=== PATIENT | female | born 1935 | race Caucasian/White ===

== ENCOUNTER 2017-08-06 16:17 | Emergency (ER) | payer MEDICARE, MEDICAID ==
--- NOTE | 2017-08-06 16:55 | ED Physician Chart ---
ED Chief Complaint/HPI - Patient Information Date Seen:: 08/06/17 Time Seen:: 16:40 Chief Complaint:: Syncope History of Present Illness:: onset x one day of a possible syncope episode resulting in a possible fall resulting in report of right hip pain; no report of H/As, S/T, neck pain, C/P, SOB, Abd. Pain, A/N/V/D/C, fever, chills, or urinary s/s; pt's last tetanus shot : < 5 years; UTD; no report of AMS, ALOC, or LOC Vitals:: Vital Signs - 8 hr 08/06/17 16:41 Temp 97.2 F HR 64 RR 16 BP 126/67 O2 Sat % 99 Historian:: Patient, EMS Review:: Nurse's Note Reviewed, Old Chart Reviewed, EMS run form Reviewed ED Review of Systems - Review of Systems General/Constitutional: No fever, No chills, No weight loss, No weakness, No diaphoresis, No edema, No loss of appetite Skin: No skin lesions, No rash, No bruising Head: No headache, No light-headedness Eyes: No loss of vision, No pain, No diplopia ENT: No earache, No nasal drainage, No sore throat, No tinnitus Neck: No neck pain, No swelling, No thyromegaly, No stiffness, No mass noted Cardio Vascular: No chest pain, No palpitations, No PND, No orthopnea, No edema Pulmonary: No SOB, No cough, No sputum, No wheezing GI: No nausea, No vomiting, No diarrhea, No pain, No melena, No hematochezia, No constipation, No hematemesis G/U: No dysuria, No frequency, No hematuria, No nacturia [employer]: No vaginal discharge, No abnormal vaginal bleed, No contraction Musculoskeletal: No bone or joint pain, No back pain, No muscle pain Endocrine: No polyuria, No polydipsia Psychiatric: Prior psych history, No depression, Anxiety, No suicidal ideation, No homicidal ideation, Auditory hallucination, No visual hallucination Hematopoietic: No bruising, No lymphadenopathy Allergic/Immuno: No urticaria, No angioedema Neurological: No syncope, No focal symptoms, No weakness, No paresthesia, No headache, No seizure, No dizziness, Confusion, No vertigo ED Past Medical History - Past Medical History Obtainable: Yes Past Medical History: HTN, Asthma/COPD, Dyslipidemia, PUD/GERD, Dementia Family History: HTN Social History: Non Smoker, No Alcohol, No Drug Use, Single, Care Facility Surgical History: None Psychiatricy History: Schizophrenia, Dementia Medication: Reviewed Family Medical History - Family Member Son History Unknown: Yes ED Physical Exam - Physical Examination General/Constitutional: Awake, Well-developed, well-nourished, Alert, No distress, GCS 15, Non-toxic appearing, Ambulatory Head: Atraumatic Eyes: Lids, conjuctiva normal, PERRL, EOMI Skin: Nl inspection, No rash, No skin lesions, No ecchymosis, Well hydrated, No lymphadenopathy ENMT: External ears, nose nl, TM canals nl, Nasal exam nl, Lips, teeth, gums nl , Oropharynx nl, Tonsils nl Neck: Nontender, Full ROM w/o pain, No JVD, No nuchal rigidity, No bruit, No mass, No stridor Respiratory: Nl effort/Exclusion, Clear to Auscultation, No Wheeze/Rhonchi/Rales Cardio Vascular: RRR, No murmur, gallop, rubs, NL S1 S2, Carotid/Femoral/Distal pulses equal bilaterally GI: No tenderness/rebounding/guarding, No organomegaly, No hernia, Normal BS's, Nondistended, No mass/bruits, No McBurney tenderness : No CVA tenderness Extremities: No tenderness or effusion, Full ROM, normal strength in all extremities, No edema, Normal digits & nails Other Extremities comments:: + Right Hip tenderness; good NV functions Neuro/Psych: DTR's symmetric, Normal sensory exam, Normal motor strength, Judgement/insight normal, Mood normal, Normal gait, No focal deficits Other Neuro/Psych comments:: Disoriented and Confused Misc: Normal back, No paraspinal tenderness ED Labs/Radiology/EKG Results - Lab Results Comments:: unremarkable - Radiology Results Comments:: NAD - EKG Interpretations EKG Time:: 16:59 Rate & Rhythm: 58; SB Comments:: non-specific st-t changes ED Septic Shock - . Is Septic Shock (SBP<90, OR Lactate>4 mmol\L) present?: No - <6hrs of presentation: Vital Signs: Vital Signs - 8 hr 08/06/17 16:41 Temp 97.2 F HR 64 RR 16 BP 126/67 O2 Sat % 99 ED Reassessment (Disposition) - Reassessment Reassessment Condition:: Improved - Diagnosis Diagnosis:: Syncope; ? Fall; Hip Pain; Dementia; Psychiatric Medical Clearance - Aftercare/Follow up Instructions Aftercare/Follow-Up Instructions:: Counseled pt regarding lab results/diagnosis & need follow up, Counseled pt & family regarding lab results/diagnosis & need follow up - Patient Disposition Discharge/Transfer:: Acute Care w/in this hosp Accepting Physician:: Dr. Costa Time Called:: 1829 Time Responded:: 18:30 Admitted to:: [facility] Spoke to:: Dr. Phillip Dubois Admitting Medical Physician:: Dr. Costa Admitting Psych Physician:: Dr. Latif Condition at Disposition:: Stable, Improved
[2017-08-06 17:13] LABS: % BASOPHILS 0.2 % (0.0-2.0); % EOSINOPHILS 2.9 % (0.0-5.0); % LYMPHOCYTES 27.8 % (20.0-50.0); % MONOCYTES 7.8 % (2.0-10.0); % NEUTROPHILS 61.3 % (40.0-80.0); EOSINOPHILE ABSOLUTE 0.2 Th/cmm (0.1-0.4); HEMATOCRIT 37.5 % (41.0-60); HEMOGLOBIN 12.9 gm/dL (12-16); MEAN CELL VOLUME 87.4 fl (81-100); MEAN CORPUSCULAR HGB CONC 34.3 pg (28.0-36.0); MEAN PLATELET VOLUME 7.9 fl; MONOCYTE ABSOLUTE 0.6 Th/cmm (0.3-1.0); NEUTROPHILE ABSOLUTE 4.5 Th/cmm (1.8-8.0); PLATELET COUNT 269 Th/cmm (150-400); RED BLOOD COUNT 4.29 Mil/cmm (3.80-5.20); RED CELL DISTRIBUTION WIDTH 12.7 % (11.5-20.0); WHITE BLOOD COUNT 7.3 Th/cmm (4.8-10.8)
[2017-08-06 17:29] LABS: INR 0.92 (0.5-1.4); PROTHROMBIN TIME (TEST) 9.6 SECONDS (9.5-11.5)
[2017-08-06 17:32] LABS: ALB/GLOB RATIO 1.6 (1.0-1.8); ALBUMIN 4.4 gm/dL (3.7-5.3); ALKALINE PHOSPHATASE 47 U/L (34-104); BILIRUBIN,TOTAL 0.3 mg/dL (0.3-1.0); BUN - UREA NITROGEN 22 mg/dL (7-25); CALCIUM SERUM 9.7 mg/dL (8.6-10.3); CARBON DIOXIDE 29.9 mEq/L (21.0-31.0); CHLORIDE 100 mEq/L (98-107); CHOLESTEROL 187 mg/dL (<200); CREATININE - SERUM 0.8 mg/dL (0.6-1.2); CREATININE KINASE 105 U/L (30-223); GLUCOSE 94 mg/dL (70-105); HDL -HIGH DENSITY LIPOPROTEIN 64 mg/dL (23-92); POTASSIUM SERUM 3.9 mEq/L (3.5-5.1); SGOT 21 U/L (13-39); SGPT/ALT 15 U/L (7-52); SODIUM SERUM 136 mEq/L (136-145); TOTAL PROTEIN,SERUM 7.1 gm/dL (6.0-8.3); TRIGLYCERIDES 102 mg/dL (<150)
--- NOTE | 2017-08-07 07:55 | Diagnostic Imaging Report ---
Pelvis and bilateral hips 2 views Indication: pain Comparison: none Findings: Mild degenerative changes of bilateral hip joints are noted. There appear to be external material projecting along the right proximal femur including including closing material. No evidence of an acute fracture or dislocation. Advanced degenerate changes of the lower lumbar spine are noted. Pelvic phleboliths are noted. Impression: No evidence of an acute fracture. Mild degenerative changes of bilateral hip joints. Advanced degenerative changes of the lower lumbar spine. In the setting of trauma, if clinical symptoms persist and there is continued concern for an occult fracture, follow up exams in 5-7 days is suggested.
== END 2017-08-06 20:00 ==
LOC: ER 16:17
DX: R55 Syncope and collapse (principal); F03.90 Unspecified dementia, unspecified severity, without behavioral disturbance, psychotic disturbance, mood disturbance, and anxiety; M25.551 Pain in right hip; I10 Essential (primary) hypertension; J44.9 Chronic obstructive pulmonary disease, unspecified; J45.909 Unspecified asthma, uncomplicated; E78.5 Hyperlipidemia, unspecified; K21.9 Gastro-esophageal reflux disease without esophagitis; K27.9 Peptic ulcer, site unspecified, unspecified as acute or chronic, without hemorrhage or perforation
CPT/HCPCS: 36415-UA; 73521; 80053-TC; 80061-TC; 82550-TC; 83880-TC; 84484-TC; 85025-TC; 85610-TC; 93005; 94760; J2001; Z7610

== ENCOUNTER 2017-11-01 17:29 | Inpatient (IN) | payer MEDICARE, MEDICAID ==
--- NOTE | 2017-11-01 18:21 | ED Physician Chart ---
ED Chief Complaint/HPI - Patient Information History of Present Illness:: Patient lives in retirement facility, history of psychiatric illness. Recent exacerbation of illness with verbally abusive behavior with psychotic overtones. Allergies:: Allergies Allergy/AdvReac Type Severity Reaction Status Date / Time No Known Allergies Allergy Verified 08/06/17 16:57 Historian:: EMS, Medical Records <Krishan eKvin Last Filed: 11/02/17 20:04> - Patient Information Date Seen:: 11/01/17 Time Seen:: 18:21 Chief Complaint:: Agitation and aggressiveness Allergies:: Allergies Allergy/AdvReac Type Severity Reaction Status Date / Time No Known Allergies Allergy Verified 08/06/17 16:57 Vitals:: Vital Signs - 8 hr 11/01/17 17:41 Temp 97.5 F HR 67 RR 16 BP 135/62 O2 Sat % 98 <Carole Vazquez - Last Filed: 11/02/17 21:43> ED Review of Systems - Review of Systems Skin: No skin lesions ENT: No nasal drainage Neck: No mass noted Cardio Vascular: No edema Pulmonary: No wheezing GI: No melena Psychiatric: Prior psych history (aggressive behavior) Hematopoietic: No bruising Allergic/Immuno: No urticaria Neurological: No seizure Other: Difficult to obtain full ROS as patient is unreliable historian. Obtained from medical records and EMS. <Krishan Kevin Filed: 11/02/17 20:04> ED Past Medical History - Past Medical History Obtainable: Yes (Difficult to obtain full PMH as patient is unreliable) Past Medical History: Other (chronic psychiatric illness) Social History: Care Facility Psychiatricy History: Depression (aggressive behavior) <Krishan Kevin Last Filed: 11/02/17 20:04> Family Medical History - Family Member Son History Unknown: Yes <Krishan Kevin Last Filed: 11/02/17 20:04> - Family Member Son History Unknown: Yes <Carole Vazquez - Last Filed: 11/02/17 21:43> ED Physical Exam - Physical Examination General/Constitutional: Awake Head: Atraumatic Eyes: Lids, conjuctiva normal Skin: Nl inspection ENMT: External ears, nose nl Neck: Nontender Respiratory: Nl effort/Exclusion, No Wheeze/Rhonchi/Rales Cardio Vascular: RRR GI: No tenderness/rebounding/guarding Extremities: No tenderness or effusion Misc: Normal back <KevinKrishan - Last Filed: 11/02/17 20:04> ED Labs/Radiology/EKG Results - Lab Results Results: Laboratory Tests 11/01/17 11/01/17 11/01/17 18:00 18:37 18:37 WBC 6.5 RBC 4.24 Hgb 12.7 Hct 36.4 L MCV 85.8 MCH 29.9 MCHC Differential 34.8 RDW 12.6 Plt Count 292 MPV 7.6 Neutrophils % 58.5 Lymphocytes % 26.3 Monocytes % 8.8 Eosinophils % 5.8 H Basophils % 0.6 Sodium 136 Potassium 3.9 Chloride 101 Carbon Dioxide 27.9 Anion Gap 11.0 BUN 21 Creatinine 0.9 Est GFR ( Amer) TNP Est GFR (Non-Af Amer) TNP BUN/Creatinine Ratio 23.3 Glucose 106 H Calcium 9.8 Total Bilirubin 0.4 AST 19 ALT 16 Alkaline Phosphatase 52 Troponin I B-Natriuretic Peptide Total Protein 7.1 Albumin 4.6 Globulin 2.5 Albumin/Globulin Ratio 1.8 Urine Source RANDOM Urine Color YELLOW Urine Clarity CLEAR Urine pH 6.0 Ur Specific [place] 1.020 Urine Protein NEGATIVE Urine Glucose (UA) NEGATIVE Urine Ketones NEGATIVE Urine Blood NEGATIVE Urine Nitrate NEGATIVE Urine Bilirubin NEGATIVE Urine Urobilinogen 0.2 Ur Leukocyte Esterase NEGATIVE Urine RBC 0-2 Urine WBC 0-2 Ur Epithelial Cells FEW Urine Bacteria FEW 11/01/17 11/01/17 18:37 18:37 WBC RBC Hgb Hct MCV MCH MCHC Differential RDW Plt Count MPV Neutrophils % Lymphocytes % Monocytes % Eosinophils % Basophils % Sodium Potassium Chloride Carbon Dioxide Anion Gap BUN Creatinine Est GFR ( Amer) Est GFR (Non-Af Amer) BUN/Creatinine Ratio Glucose Calcium Total Bilirubin AST ALT Alkaline Phosphatase Troponin I < 0.01 L B-Natriuretic Peptide 22.3 Total Protein Albumin Globulin Albumin/Globulin Ratio Urine Source Urine Color Urine Clarity Urine pH Ur Specific [place] Urine Protein Urine Glucose (UA) Urine Ketones Urine Blood Urine Nitrate Urine Bilirubin Urine Urobilinogen Ur Leukocyte Esterase Urine RBC Urine WBC Ur Epithelial Cells Urine Bacteria <Krishan Kevin - Last Filed: 11/02/17 20:04> - EKG Interpretations EKG Time:: 18:41 Rate & Rhythm: 61 bpm, sinus rhythm [place]: normal axis Intervals: LA 207, QRS 98 <Carole Vazquez - Last Filed: 11/02/17 21:43> ED Assessment - Assessment General Assessment: Patient had psychotic break requiring adjustment of psychiatric medication and inpatient treatment and therapeutic measures. Continuous verbalization that she didn't need to be here and that she would pay for a taxi to go home. Assessment/Comments:: Transferred to inpatient care within this hospital. <Krishan Kevin - Last Filed: 11/02/17 20:04> ED Septic Shock - . Is Septic Shock (SBP<90, OR Lactate>4 mmol\L) present?: No <Krishan Kevin Last Filed: 11/02/17 20:04> - . Is Septic Shock (SBP<90, OR Lactate>4 mmol\L) present?: No - <6hrs of presentation: Vital Signs: Vital Signs - 8 hr 11/01/17 17:41 Temp 97.5 F HR 67 RR 16 BP 135/62 O2 Sat % 98 <Carole Vazquez - Last Filed: 11/02/17 21:43> ED Reassessment (Disposition) - Reassessment Reassessment:: Exacerbation of psychiatric illness, adjustment in psychiatric medication needed. - Diagnosis Diagnosis:: Psychiatric illness with agitation and some confusion. - Patient Disposition Discharge/Transfer:: Acute Care w/in this hosp Condition at Disposition:: Unchanged <Krishan Kevin - Last Filed: 11/02/17 20:04> - Reassessment Reassessment Condition:: Unchanged - Patient Disposition Admitting Medical Physician:: Fred Costa Admitting Psych Physician:: Gina Weems <Carole Vazquez - Last Filed: 11/02/17 21:43>
[2017-11-01 18:47] LABS: EOSINOPHILE ABSOLUTE 0.4 Th/cmm (0.1-0.4); LYMPHOCYTE ABSOLUTE 1.7 Th/cmm (1.5-3.0); MONOCYTE ABSOLUTE 0.6 Th/cmm (0.3-1.0); RED BLOOD COUNT 4.24 Mil/cmm (3.80-5.20)
[2017-11-01 18:51] LABS: % BASOPHILS 0.6 % (0.0-2.0); % EOSINOPHILS 5.8 % (0.0-5.0); % LYMPHOCYTES 26.3 % (20.0-50.0); % MONOCYTES 8.8 % (2.0-10.0); % NEUTROPHILS 58.5 % (40.0-80.0); HEMATOCRIT 36.4 % (41.0-60); HEMOGLOBIN 12.7 gm/dL (12-16); MEAN CELL VOLUME 85.8 fl (81-100); MEAN CORPUSCULAR HEMOGLOBIN 29.9 pg (27.0-31.0); MEAN CORPUSCULAR HGB CONC 34.8 pg (28.0-36.0); MEAN PLATELET VOLUME 7.6 fl; NEUTROPHILE ABSOLUTE 3.8 Th/cmm (1.8-8.0); PLATELET COUNT 292 Th/cmm (150-400); RED CELL DISTRIBUTION WIDTH 12.6 % (11.5-20.0); WHITE BLOOD COUNT 6.5 Th/cmm (4.8-10.8)
[2017-11-01 19:08] LABS: ALB/GLOB RATIO 1.8 (1.0-1.8); ALBUMIN 4.6 gm/dL (3.7-5.3); ALKALINE PHOSPHATASE 52 U/L (34-104); BILIRUBIN,TOTAL 0.4 mg/dL (0.3-1.0); BUN - UREA NITROGEN 21 mg/dL (7-25); CALCIUM SERUM 9.8 mg/dL (8.6-10.3); CARBON DIOXIDE 27.9 mEq/L (21.0-31.0); CHLORIDE 101 mEq/L (98-107); CREATININE - SERUM 0.9 mg/dL (0.6-1.2); GLUCOSE 106 mg/dL (70-105); POTASSIUM SERUM 3.9 mEq/L (3.5-5.1); SGOT 19 U/L (13-39); SGPT/ALT 16 U/L (7-52); SODIUM SERUM 136 mEq/L (136-145); TOTAL PROTEIN,SERUM 7.1 gm/dL (6.0-8.3)
[2017-11-01 22:24] LABS: URINE BILIRUBIN NEGATIVE (NEGATIVE); URINE BLOOD NEGATIVE (NEGATIVE); URINE GLUCOSE (UA) NEGATIVE (NEGATIVE); URINE KETONE NEGATIVE (NEGATIVE); URINE LEUKOCYTE ESTERASE NEGATIVE (NEGATIVE); URINE MICROSCOPIC INDICATED? YES; URINE NITRATE NEGATIVE (NEGATIVE); URINE PROTEIN NEGATIVE (NEGATIVE); URINE SOURCE RANDOM; URINE UROBILINOGEN 0.2 E.U./dL (0.2 - 1.0)
[2017-11-01 22:28] LABS: URINE CLARITY CLEAR (CLEAR); URINE COLOR YELLOW
[2017-11-01 22:29] LABS: URINE BACTERIA FEW /hpf (NONE SEEN); URINE EPITHELIAL CELLS FEW /lpf (FEW); URINE RBC 0-2 /hpf (0-5); URINE WBC 0-2 /hpf (0-5)
[2017-11-02 00:11] VITALS: BP 136/73
[2017-11-02] MEDS ORDERED: Magnesium Hydroxide (MOM) 30 mL UDC PO PRN (00:24)
[2017-11-02] MEDS ORDERED: Non-Formulary Item 1 EA (Albuterol Sulfate [Proair Respiclick] 2 PUFF) PO PRN (00:35)
[2017-11-02] MEDS ORDERED: Maalox 30 mL Cup PO PRN (00:35)
[2017-11-02] MEDS: Multivitamin Tab PO SCH (08:47)
[2017-11-02] MEDS ORDERED: Non-Formulary Item 1 EA (Multivitamin [Multi-Day Vitamins] 1 TAB) PO SCH (09:00)
--- NOTE | 2017-11-02 09:28 | Diagnostic Imaging Report ---
Portable chest x-ray History: Shortness of breath Allowing for portable technique the heart size is normal. No focal pulmonary parenchymal processes. No hilar or mediastinal abnormalities. Impression: No acute abnormalities.
--- NOTE | 2017-11-02 15:31 | History & Physical ---
ADMIT DATE: 11/01/2017 IDENTIFYING INFORMATION: The patient is an 82-year-old female. CHIEF COMPLAINT: The patient has no idea. HISTORY OF PRESENT ILLNESS: The patient was referred from [place] because of agitation and aggressive behavior. The patient herself, though she seems to be a good historian. She knew her age; however, she was unable to tell me more details about why she was here, she did not know the date. She did know she was able to tell me her age, but could not tell me the exact date of . She says she was born in [birth year], but no further information was able to be given, could not remember the year. She denies prior psychiatric treatment. Denies any auditory or visual hallucination; however, she is not a reliable historian. PAST PSYCHIATRIC HISTORY: The patient with a history of aggressive behavior, dementia. The patient is on Aricept 10 mg at bedtime and Zyprexa. MEDICAL HISTORY: The patient has no known drug allergy. The patient with a history of dementia. FAMILY AND SOCIAL HISTORY: The patient reports that she is , unable tell me how long. She has 1 child. 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 However, she is an unreliable. Unable to tell me if there is any family psychotic disorder. MENTAL STATUS EXAMINATION: The patient is appropriately dressed, not well groomed. She was in bed. She was alert. She was articulate, but yet she was unable to tell me exact date or her date of or her age. She is unable to tell me why she was sent here. She was agitated, hitting staff, out of control, unpredictable, impulsive when asked about suicide, homicide, she denies, however, she is an unreliable historian. Her long and short term memory is poor, unable to tell me her age, date of , unable to tell me the date today or what she had for breakfast. She denies any auditory or visual hallucinations. Insight and judgment is impaired. IMPRESSION: AXIS I: Psychosis, not otherwise specified, dementia. MEDICAL DIAGNOSES: Deferred to the medical doctor. ASSETS: She is accepting and negative poor coping skills. INITIAL TREATMENT PLAN: The patient will be start Zyprexa, 0.5 mg at bedtime. We will do group therapy, milieu therapy, and individual with her son. ESTIMATED LENGTH OF STAY: 3-7 days. DISCHARGE CRITERIA: Decrease in agitation, psychosis after discharge. [facility]# [id number]
--- NOTE | 2017-11-02 16:05 | History & Physical ---
ADMIT DATE: 11/02/2017 CHIEF COMPLAINT: Agitation. HISTORY OF PRESENT ILLNESS: This is an 82-year-old female who was admitted from a [facility]pc facility to the Emergency Room due to increased agitation. REVIEW OF SYSTEMS: GENERAL: This is an 82-year-old female that appears as stated. No weakness. No weight loss. HEAD: No headache. No dizziness. EYES: No eye pain, no blurring vision. NECK: No neck pain or nuchal rigidity. CHEST: No chest pain. No palpitation. PULMONARY: No coughing. No shortness of breath. GASTROINTESTINAL: No abdominal pain, no diarrhea, no constipation. MUSCULOSKELETAL: No joint pain. No muscle pain. SOCIAL HISTORY: The patient lives in a f[facility] facility prior to hospitalization. FAMILY HISTORY: Unremarkable. PAST SURGICAL HISTORY: Unremarkable. PSYCHIATRIC HISTORY: Includes psychosis and dementia. PAST MEDICAL HISTORY: Includes osteoarthritis and asthma. PHYSICAL EXAMINATION: VITAL SIGNS: Temperature 98.8, heart rate 65, blood pressure 130/69, respirations 20 and 97% on room air. HEENT: Head is atraumatic and normocephalic. Eyes, bilateral conjunctivae are clear. Bilateral pupils are equally round and reactive. NECK: Supple. No JVD. CARDIOVASCULAR: S1 and S2, without murmur. PULMONARY: Clear to auscultation. GASTROINTESTINAL: Soft and nontender without guarding. Positive bowel sounds. MUSCULOSKELETAL: No clubbing. No cyanosis noted. ASSESSMENT: 1. Psychosis. 2. Dementia. 3. Asthma. 4. Osteoarthritis. 5. Unsteady gait. PLAN: We will admit the patient to senior mental health unit. We will follow up with a psychiatrist to monitor the patient's condition and behavior. We will do medication reconciliation accordingly. Treatment plans were discussed with the patient's nurse. Treatment plans were discussed with Dr. Costa. JOB# [id number]
[2017-11-03] MEDS: Multivitamin Tab PO SCH (08:48)
--- NOTE | 2017-11-03 11:16 | General Progress Note ---
Subjective - Review of Systems Events since last encounter: patient admitted for increase agitation denies pain Objective - Results Result Diagrams: 11/01/17 18:37 11/01/17 18:37 Recent Labs: Laboratory Last Values WBC 6.5 Th/cmm (4.8-10.8) 11/01/17 18:37 RBC 4.24 Mil/cmm (3.80-5.20) 11/01/17 18:37 Hgb 12.7 gm/dL (12-16) 11/01/17 18:37 Hct 36.4 % (41.0-60) L 11/01/17 18:37 MCV 85.8 fl (81-100) 11/01/17 18:37 MCH 29.9 pg (27.0-31.0) 11/01/17 18:37 MCHC Differential 34.8 pg (28.0-36.0) 11/01/17 18:37 RDW 12.6 % (11.5-20.0) 11/01/17 18:37 Plt Count 292 Th/cmm (150-400) 11/01/17 18:37 MPV 7.6 fl 11/01/17 18:37 Neutrophils % 58.5 % (40.0-80.0) 11/01/17 18:37 Lymphocytes % 26.3 % (20.0-50.0) 11/01/17 18:37 Monocytes % 8.8 % (2.0-10.0) 11/01/17 18:37 Eosinophils % 5.8 % (0.0-5.0) H 11/01/17 18:37 Basophils % 0.6 % (0.0-2.0) 11/01/17 18:37 Sodium 136 mEq/L (136-145) 11/01/17 18:37 Potassium 3.9 mEq/L (3.5-5.1) 11/01/17 18:37 Chloride 101 mEq/L (98-107) 11/01/17 18:37 Carbon Dioxide 27.9 mEq/L (21.0-31.0) 11/01/17 18:37 Anion Gap 11.0 (7.0-16.0) 11/01/17 18:37 BUN 21 mg/dL (7-25) 11/01/17 18:37 Creatinine 0.9 mg/dL (0.6-1.2) 11/01/17 18:37 Est GFR ( Amer) TNP 11/01/17 18:37 Est GFR (Non-Af Amer) TNP 11/01/17 18:37 BUN/Creatinine Ratio 23.3 11/01/17 18:37 Glucose 106 mg/dL (70-105) H 11/01/17 18:37 Calcium 9.8 mg/dL (8.6-10.3) 11/01/17 18:37 Total Bilirubin 0.4 mg/dL (0.3-1.0) 11/01/17 18:37 AST 19 U/L (13-39) 11/01/17 18:37 ALT 16 U/L (7-52) 11/01/17 18:37 Alkaline Phosphatase 52 U/L (34-104) 11/01/17 18:37 Troponin I < 0.01 ng/mL (0.01-0.05) L 11/01/17 18:37 B-Natriuretic Peptide 22.3 pg/mL (5.0-100.0) 11/01/17 18:37 Total Protein 7.1 gm/dL (6.0-8.3) 11/01/17 18:37 Albumin 4.6 gm/dL (3.7-5.3) 11/01/17 18:37 Globulin 2.5 gm/dL 11/01/17 18:37 Albumin/Globulin Ratio 1.8 (1.0-1.8) 11/01/17 18:37 Urine Source RANDOM 11/01/17 18:00 Urine Color YELLOW 11/01/17 18:00 Urine Clarity CLEAR (CLEAR) 11/01/17 18:00 Urine pH 6.0 (4.6 - 8.0) 11/01/17 18:00 Ur Specific [place] 1.020 (1.005-1.030) 11/01/17 18:00 Urine Protein NEGATIVE mg/dL (NEGATIVE) 11/01/17 18:00 Urine Glucose (UA) NEGATIVE mg/dL (NEGATIVE) 11/01/17 18:00 Urine Ketones NEGATIVE mg/dL (NEGATIVE) 11/01/17 18:00 Urine Blood NEGATIVE (NEGATIVE) 11/01/17 18:00 Urine Nitrate NEGATIVE (NEGATIVE) 11/01/17 18:00 Urine Bilirubin NEGATIVE (NEGATIVE) 11/01/17 18:00 Urine Urobilinogen 0.2 E.U./dL (0.2 - 1.0) 11/01/17 18:00 Ur Leukocyte Esterase NEGATIVE (NEGATIVE) 11/01/17 18:00 Urine RBC 0-2 /hpf (0-5) 11/01/17 18:00 Urine WBC 0-2 /hpf (0-5) 11/01/17 18:00 Ur Epithelial Cells FEW /lpf (FEW) 11/01/17 18:00 Urine Bacteria FEW /hpf (NONE SEEN) 11/01/17 18:00 - Physical Exam Vitals and I&O: Vital Signs Temp 97.4 F 11/03/17 05:00 Pulse 75 11/03/17 05:00 Resp 18 11/03/17 05:00 BP 148/78 11/03/17 05:00 Pulse Ox 95 11/03/17 05:00 Intake & Output 11/02/17 11/03/17 11/03/17 18:59 06:59 18:59 Intake Total 480 Balance 480 Weight (lbs) 58.967 kg Intake: Oral 480 Other: # Voids 2 Active Medications: Current Medications Acetaminophen (Tylenol) 650 mg PO Q4HR PRN PRN Reason: Mild Pain / Temp above 100 Stop: 01/01/18 00:23 Last Admin: 11/02/17 16:53 Dose: 650 mg Al Hydrox/Mg Hydrox/Simethicone (Maalox) 30 ml PO Q4H PRN PRN Reason: GERD Stop: 01/01/18 00:34 Donepezil HCl (Aricept) 10 mg PO HS NICHOLAS Stop: 01/01/18 20:59 Last Admin: 11/02/17 21:02 Dose: 10 mg Lorazepam (Ativan) 0.5 mg PO Q4HR PRN; Protocol PRN Reason: Agitation Stop: 12/02/17 00:23 Last Admin: 11/02/17 17:58 Dose: 0.5 mg Magnesium Hydroxide (Milk Of Magnesia) 30 ml PO HS PRN PRN Reason: Constipation Multivitamins/Vitamin C (Theragran) 1 tab PO DAILY NICHOLAS Stop: 01/01/18 08:59 Last Admin: 11/03/17 08:48 Dose: 1 tab Olanzapine (Zyprexa) 5 mg PO HS NICHOLAS; Protocol Stop: 01/01/18 20:59 Last Admin: 11/02/17 21:02 Dose: 5 mg Zolpidem Tartrate (Ambien) 5 mg PO HSMR1 PRN PRN Reason: Insomnia Stop: 01/01/18 00:23 Last Admin: 11/02/17 21:03 Dose: 5 mg General: No acute distress HEENT: Atraumatic Neck: Supple Cardiovascular: Regular rate, Normal S1, Normal S2 Lungs: Clear to auscultation Assessment/Plan - Problem List Patient Problems: All Active Problems INCREASED AGGRESSION AND AGITATION (Acute) - Plan Plan: as per psych will monitor
--- NOTE | 2017-11-03 21:43 | Progress Notes ---
DATE: 11/03/2017 Case was discussed with staff of the patient. The patient has no idea that she is on medication for her memory. She said that she has complained years ago and I told her, but she did not think that she was on that kind of medication. She is alert, was oriented x 3. She said that her mother had Alzheimer's at an older age. The patient continues to be unpredictable, impulsive, needing redirection. No side effects of medication, no sedation, no nausea, no extrapyramidal symptoms. Lab work showed CBC with low hematocrit, high eosinophil. The rest within normal range. Chemistry panel with high blood sugar and the rest within normal range. Urinalysis within normal range. I will continue the patient in group therapy, milieu therapy, and adjust the medication as needed. JOB# [id number]
[2017-11-04] MEDS: Multivitamin Tab PO SCH (08:36)
[2017-11-05] MEDS: Multivitamin Tab PO SCH (09:08)
--- NOTE | 2017-11-05 12:50 | Internal Medicine Prog Note ---
Internal Medicine Subjective - Subjective Service Date: 11/05/17 Patient seen and examined:: with staff Patient is:: awake Per staff patient has:: no adverse event Internal Medicine Objective - Results Result Diagrams: 11/01/17 18:37 11/01/17 18:37 Recent Labs: Laboratory Last Values WBC 6.5 Th/cmm (4.8-10.8) 11/01/17 18:37 RBC 4.24 Mil/cmm (3.80-5.20) 11/01/17 18:37 Hgb 12.7 gm/dL (12-16) 11/01/17 18:37 Hct 36.4 % (41.0-60) L 11/01/17 18:37 MCV 85.8 fl (81-100) 11/01/17 18:37 MCH 29.9 pg (27.0-31.0) 11/01/17 18:37 MCHC Differential 34.8 pg (28.0-36.0) 11/01/17 18:37 RDW 12.6 % (11.5-20.0) 11/01/17 18:37 Plt Count 292 Th/cmm (150-400) 11/01/17 18:37 MPV 7.6 fl 11/01/17 18:37 Neutrophils % 58.5 % (40.0-80.0) 11/01/17 18:37 Lymphocytes % 26.3 % (20.0-50.0) 11/01/17 18:37 Monocytes % 8.8 % (2.0-10.0) 11/01/17 18:37 Eosinophils % 5.8 % (0.0-5.0) H 11/01/17 18:37 Basophils % 0.6 % (0.0-2.0) 11/01/17 18:37 Sodium 136 mEq/L (136-145) 11/01/17 18:37 Potassium 3.9 mEq/L (3.5-5.1) 11/01/17 18:37 Chloride 101 mEq/L (98-107) 11/01/17 18:37 Carbon Dioxide 27.9 mEq/L (21.0-31.0) 11/01/17 18:37 Anion Gap 11.0 (7.0-16.0) 11/01/17 18:37 BUN 21 mg/dL (7-25) 11/01/17 18:37 Creatinine 0.9 mg/dL (0.6-1.2) 11/01/17 18:37 Est GFR ( Amer) TNP 11/01/17 18:37 Est GFR (Non-Af Amer) TNP 11/01/17 18:37 BUN/Creatinine Ratio 23.3 11/01/17 18:37 Glucose 106 mg/dL (70-105) H 11/01/17 18:37 Calcium 9.8 mg/dL (8.6-10.3) 11/01/17 18:37 Total Bilirubin 0.4 mg/dL (0.3-1.0) 11/01/17 18:37 AST 19 U/L (13-39) 11/01/17 18:37 ALT 16 U/L (7-52) 11/01/17 18:37 Alkaline Phosphatase 52 U/L (34-104) 11/01/17 18:37 Troponin I < 0.01 ng/mL (0.01-0.05) L 11/01/17 18:37 B-Natriuretic Peptide 22.3 pg/mL (5.0-100.0) 11/01/17 18:37 Total Protein 7.1 gm/dL (6.0-8.3) 11/01/17 18:37 Albumin 4.6 gm/dL (3.7-5.3) 11/01/17 18:37 Globulin 2.5 gm/dL 11/01/17 18:37 Albumin/Globulin Ratio 1.8 (1.0-1.8) 11/01/17 18:37 Urine Source RANDOM 11/01/17 18:00 Urine Color YELLOW 11/01/17 18:00 Urine Clarity CLEAR (CLEAR) 11/01/17 18:00 Urine pH 6.0 (4.6 - 8.0) 11/01/17 18:00 Ur Specific [place] 1.020 (1.005-1.030) 11/01/17 18:00 Urine Protein NEGATIVE mg/dL (NEGATIVE) 11/01/17 18:00 Urine Glucose (UA) NEGATIVE mg/dL (NEGATIVE) 11/01/17 18:00 Urine Ketones NEGATIVE mg/dL (NEGATIVE) 11/01/17 18:00 Urine Blood NEGATIVE (NEGATIVE) 11/01/17 18:00 Urine Nitrate NEGATIVE (NEGATIVE) 11/01/17 18:00 Urine Bilirubin NEGATIVE (NEGATIVE) 11/01/17 18:00 Urine Urobilinogen 0.2 E.U./dL (0.2 - 1.0) 11/01/17 18:00 Ur Leukocyte Esterase NEGATIVE (NEGATIVE) 11/01/17 18:00 Urine RBC 0-2 /hpf (0-5) 11/01/17 18:00 Urine WBC 0-2 /hpf (0-5) 11/01/17 18:00 Ur Epithelial Cells FEW /lpf (FEW) 11/01/17 18:00 Urine Bacteria FEW /hpf (NONE SEEN) 11/01/17 18:00 - Physical Exam Vitals and I&O: Vital Signs Temp 98.1 F 11/05/17 05:59 Pulse 64 11/05/17 05:59 Resp 18 11/05/17 05:59 BP 108/66 11/05/17 05:59 Pulse Ox 97 11/05/17 05:59 Intake & Output 11/04/17 11/05/17 11/05/17 18:59 06:59 18:59 Intake Total 900 Balance 900 Intake: Oral 900 Active Medications: Current Medications Acetaminophen (Tylenol) 650 mg PO Q4HR PRN PRN Reason: Mild Pain / Temp above 100 Stop: 01/01/18 00:23 Last Admin: 11/04/17 13:30 Dose: 650 mg Al Hydrox/Mg Hydrox/Simethicone (Maalox) 30 ml PO Q4H PRN PRN Reason: GERD Stop: 01/01/18 00:34 Donepezil HCl (Aricept) 10 mg PO HS NICHOLAS Stop: 01/01/18 20:59 Last Admin: 11/04/17 20:37 Dose: 10 mg Lorazepam (Ativan) 0.5 mg PO Q4HR PRN; Protocol PRN Reason: Agitation Stop: 12/02/17 00:23 Last Admin: 11/04/17 20:37 Dose: 0.5 mg Magnesium Hydroxide (Milk Of Magnesia) 30 ml PO HS PRN PRN Reason: Constipation Multivitamins/Vitamin C (Theragran) 1 tab PO DAILY NICHOLAS Stop: 01/01/18 08:59 Last Admin: 11/05/17 09:08 Dose: 1 tab Olanzapine (Zyprexa) 5 mg PO HS NICHOLAS; Protocol Stop: 01/01/18 20:59 Last Admin: 11/04/17 20:37 Dose: 5 mg Zolpidem Tartrate (Ambien) 5 mg PO HSMR1 PRN PRN Reason: Insomnia Stop: 01/01/18 00:23 Last Admin: 11/04/17 20:37 Dose: 5 mg General: alert HEENT: NC/AT, PERRLA Neck: Supple Lungs: CTAB Cardiovascular: RRR, Normal S1, Normal S2, without murmur Abdomen: soft, non-tender, non-distended, positive bowel sound Internal Medicine Assmt/Plan - Assessment Assessment: INCREASED AGGRESSION AND AGITATION (Acute) - Plan Plan: cpm
--- NOTE | 2017-11-05 23:53 | Progress Notes ---
DATE: SUBJECTIVE: Chart reviewed and the patient interviewed. Also discussed the patient's condition with the staff and reviewed the records and labs. The patient is still hyperverbal. The patient also is still unpredictable and labile and forgetful. The patient also is oriented x 2 only and is still impulsive and needs lots of redirections. Also because of confusion and paranoia, the patient gets angry and agitated easily. Otherwise, the patient is compliant with taking her medications with no side effects of medications. ASSESSMENT: The patient is still in irritable mood and is still unpredictable. TREATMENT PLAN: Continue monitoring her behavior and condition closely. Also, continue Zyprexa and Aricept and to continue to monitor closely. JOB# [id number]
[2017-11-06] MEDS: Multivitamin Tab PO SCH (08:16)
--- NOTE | 2017-11-06 11:57 | General Progress Note ---
Subjective - Review of Systems Events since last encounter: patient still unpredictable irritable at times no signs of pain Objective - Results Result Diagrams: 11/01/17 18:37 11/01/17 18:37 Recent Labs: Laboratory Last Values WBC 6.5 Th/cmm (4.8-10.8) 11/01/17 18:37 RBC 4.24 Mil/cmm (3.80-5.20) 11/01/17 18:37 Hgb 12.7 gm/dL (12-16) 11/01/17 18:37 Hct 36.4 % (41.0-60) L 11/01/17 18:37 MCV 85.8 fl (81-100) 11/01/17 18:37 MCH 29.9 pg (27.0-31.0) 11/01/17 18:37 MCHC Differential 34.8 pg (28.0-36.0) 11/01/17 18:37 RDW 12.6 % (11.5-20.0) 11/01/17 18:37 Plt Count 292 Th/cmm (150-400) 11/01/17 18:37 MPV 7.6 fl 11/01/17 18:37 Neutrophils % 58.5 % (40.0-80.0) 11/01/17 18:37 Lymphocytes % 26.3 % (20.0-50.0) 11/01/17 18:37 Monocytes % 8.8 % (2.0-10.0) 11/01/17 18:37 Eosinophils % 5.8 % (0.0-5.0) H 11/01/17 18:37 Basophils % 0.6 % (0.0-2.0) 11/01/17 18:37 Sodium 136 mEq/L (136-145) 11/01/17 18:37 Potassium 3.9 mEq/L (3.5-5.1) 11/01/17 18:37 Chloride 101 mEq/L (98-107) 11/01/17 18:37 Carbon Dioxide 27.9 mEq/L (21.0-31.0) 11/01/17 18:37 Anion Gap 11.0 (7.0-16.0) 11/01/17 18:37 BUN 21 mg/dL (7-25) 11/01/17 18:37 Creatinine 0.9 mg/dL (0.6-1.2) 11/01/17 18:37 Est GFR ( Amer) TNP 11/01/17 18:37 Est GFR (Non-Af Amer) TNP 11/01/17 18:37 BUN/Creatinine Ratio 23.3 11/01/17 18:37 Glucose 106 mg/dL (70-105) H 11/01/17 18:37 Calcium 9.8 mg/dL (8.6-10.3) 11/01/17 18:37 Total Bilirubin 0.4 mg/dL (0.3-1.0) 11/01/17 18:37 AST 19 U/L (13-39) 11/01/17 18:37 ALT 16 U/L (7-52) 11/01/17 18:37 Alkaline Phosphatase 52 U/L (34-104) 11/01/17 18:37 Troponin I < 0.01 ng/mL (0.01-0.05) L 11/01/17 18:37 B-Natriuretic Peptide 22.3 pg/mL (5.0-100.0) 11/01/17 18:37 Total Protein 7.1 gm/dL (6.0-8.3) 11/01/17 18:37 Albumin 4.6 gm/dL (3.7-5.3) 11/01/17 18:37 Globulin 2.5 gm/dL 11/01/17 18:37 Albumin/Globulin Ratio 1.8 (1.0-1.8) 11/01/17 18:37 Urine Source RANDOM 11/01/17 18:00 Urine Color YELLOW 11/01/17 18:00 Urine Clarity CLEAR (CLEAR) 11/01/17 18:00 Urine pH 6.0 (4.6 - 8.0) 11/01/17 18:00 Ur Specific [place] 1.020 (1.005-1.030) 11/01/17 18:00 Urine Protein NEGATIVE mg/dL (NEGATIVE) 11/01/17 18:00 Urine Glucose (UA) NEGATIVE mg/dL (NEGATIVE) 11/01/17 18:00 Urine Ketones NEGATIVE mg/dL (NEGATIVE) 11/01/17 18:00 Urine Blood NEGATIVE (NEGATIVE) 11/01/17 18:00 Urine Nitrate NEGATIVE (NEGATIVE) 11/01/17 18:00 Urine Bilirubin NEGATIVE (NEGATIVE) 11/01/17 18:00 Urine Urobilinogen 0.2 E.U./dL (0.2 - 1.0) 11/01/17 18:00 Ur Leukocyte Esterase NEGATIVE (NEGATIVE) 11/01/17 18:00 Urine RBC 0-2 /hpf (0-5) 11/01/17 18:00 Urine WBC 0-2 /hpf (0-5) 11/01/17 18:00 Ur Epithelial Cells FEW /lpf (FEW) 11/01/17 18:00 Urine Bacteria FEW /hpf (NONE SEEN) 11/01/17 18:00 - Physical Exam Vitals and I&O: Vital Signs Temp 98.2 F 11/06/17 07:05 Pulse 64 11/06/17 07:05 Resp 18 11/06/17 07:05 BP 126/70 11/06/17 07:05 Pulse Ox 98 11/06/17 07:05 Intake & Output 11/05/17 11/06/17 11/06/17 18:59 06:59 18:59 Intake Total 500 Balance 500 Intake: Oral 500 Other: # Voids 4 # Bowel Movements 1 Active Medications: Current Medications Acetaminophen (Tylenol) 650 mg PO Q4HR PRN PRN Reason: Mild Pain / Temp above 100 Stop: 01/01/18 00:23 Last Admin: 11/05/17 20:26 Dose: 650 mg Al Hydrox/Mg Hydrox/Simethicone (Maalox) 30 ml PO Q4H PRN PRN Reason: GERD Stop: 01/01/18 00:34 Donepezil HCl (Aricept) 10 mg PO HS [facility] Stop: 01/01/18 20:59 Last Admin: 11/05/17 20:26 Dose: 10 mg Lorazepam (Ativan) 0.5 mg PO Q4HR PRN; Protocol PRN Reason: Agitation Stop: 12/02/17 00:23 Last Admin: 11/05/17 20:26 Dose: 0.5 mg Magnesium Hydroxide (Milk Of Magnesia) 30 ml PO HS PRN PRN Reason: Constipation Multivitamins/Vitamin C (Theragran) 1 tab PO DAILY NICHOLAS Stop: 01/01/18 08:59 Last Admin: 11/06/17 08:16 Dose: 1 tab Olanzapine (Zyprexa) 5 mg PO HS [facility]; Protocol Stop: 01/01/18 20:59 Last Admin: 11/05/17 20:26 Dose: 5 mg Zolpidem Tartrate (Ambien) 5 mg PO HSMR1 PRN PRN Reason: Insomnia Stop: 01/01/18 00:23 Last Admin: 11/04/17 20:37 Dose: 5 mg General: No acute distress HEENT: Atraumatic Neck: Supple Cardiovascular: Regular rate, Normal S1, Normal S2 Lungs: Clear to auscultation Assessment/Plan - Problem List Patient Problems: All Active Problems INCREASED AGGRESSION AND AGITATION (Acute) - Plan Plan: as per psych will monitor Nutritional Asmnt/Malnutr-PDOC - Dietary Evaluation Malnutrition Findings (Please click <Entered> for more info): Nutritional Asmnt/Malnutrition Start: 11/05/17 15: 12 Text: Status: Complete Freq: Protocol: Document 11/05/17 15:12 LCHENG (Rec: 11/05/17 15:23 [email or web address]) Nutritional Asmnt/Malnutrition Patient General Information Nutritional Screening Moderate Risk Diagnosis psychosis Pertinent Medical Hx/Surgical Hx OA, asthma Subjective Information Pt seen lying in bed at time of visit, waiting for lunch. Pt has no question or concern about current diet/meals. Per EMR, PO intake 75-100%. Current Diet Order/ Nutrition Support regular Pertinent Medications theragran Pertinent Labs 11/01 glucose 106 Nutritional Hx/Data Height 1.73 m Height (Calculated Centimeters) 172.7 Current Weight (lbs) 58.967 kg Weight (Calculated Kilograms) 59.0 Weight (Calculated Grams) 05602.0 Sage Body Weight 140 Body Mass Index (BMI) 19.8 Weight Status Approriate GI Symptoms GI Symptoms None Last BM none Difficult in: None Skin Integrity/Comment: intact Current %PO Good (75-100%) Estimated Nutritional Goals BEE in Kcals: Using Current wt Calories/Kcals/Kg 25-30 Kcals Calculated 1968-5987 Protein: Using Current wt Protein g/k Protein Calculated 59 Fluid: ml 1475-1770ml (1ml/kcal) Nutritional Problem No current Nutrition Prob Problem N/A Malnutrition Alert Is there a minimum of two criteria No selected? Query Text:Check all the applicable criteria. A minimum of two criteria are recommended for diagnosis of either severe or non-severe malnutrition. Malnutrition Related to Morbid Obesity Malnutrition related to morbid obesity No Intervention/Recommendation Comments 1. Continue with regular diet as ordered. 2. Monitor PO intake, wt, labs and skin integrity 3. F/U as low risk in 7 days, 11/12 Expected Outcomes/Goals Expected Outcomes/Goals 1. PO intake to meet at least 75% of nutritional needs. 2. Wt stability, skin to remain intact, labs to approach WNL.
--- NOTE | 2017-11-06 21:46 | Progress Notes ---
DATE: 11/04/2017 Chart reviewed and the patient interviewed. Also discussed the patient's condition with the staff and reviewed records and labs. The patient continued to be argumentative and "I don't belong here." She is still restless and she is still argumentative and wants to be discharged from the hospital, but at the same time, she is still delusional and is still unable to provide safe plan for self-care. She also is still suspicious and paranoid. Also, easily agitated. On the other hand, compliant with taking her medications with no side effects. ASSESSMENT: The patient is still delusional and psychotic. TREATMENT PLAN: Continue to monitor behavior and condition closely. Also, continue adjusting psychotropic medications including Zyprexa, Aricept and Ativan. Also, working on discharge plans and placement issue. JOB# [id number]
[2017-11-07] MEDS: Multivitamin Tab PO SCH (09:43)
[2017-11-08] MEDS: Multivitamin Tab PO SCH (09:39)
--- NOTE | 2017-11-08 10:45 | Infectious Disease Prog Note ---
Infectious Disease Subjective - Review of Systems Service Date: 11/08/17 Subjective: There is no new change. Infectious Disease Objective - Results Result Diagrams: 11/01/17 18:37 11/01/17 18:37 Recent Labs: Laboratory Last Values WBC 6.5 Th/cmm (4.8-10.8) 11/01/17 18:37 RBC 4.24 Mil/cmm (3.80-5.20) 11/01/17 18:37 Hgb 12.7 gm/dL (12-16) 11/01/17 18:37 Hct 36.4 % (41.0-60) L 11/01/17 18:37 MCV 85.8 fl (81-100) 11/01/17 18:37 MCH 29.9 pg (27.0-31.0) 11/01/17 18:37 MCHC Differential 34.8 pg (28.0-36.0) 11/01/17 18:37 RDW 12.6 % (11.5-20.0) 11/01/17 18:37 Plt Count 292 Th/cmm (150-400) 11/01/17 18:37 MPV 7.6 fl 11/01/17 18:37 Neutrophils % 58.5 % (40.0-80.0) 11/01/17 18:37 Lymphocytes % 26.3 % (20.0-50.0) 11/01/17 18:37 Monocytes % 8.8 % (2.0-10.0) 11/01/17 18:37 Eosinophils % 5.8 % (0.0-5.0) H 11/01/17 18:37 Basophils % 0.6 % (0.0-2.0) 11/01/17 18:37 Sodium 136 mEq/L (136-145) 11/01/17 18:37 Potassium 3.9 mEq/L (3.5-5.1) 11/01/17 18:37 Chloride 101 mEq/L (98-107) 11/01/17 18:37 Carbon Dioxide 27.9 mEq/L (21.0-31.0) 11/01/17 18:37 Anion Gap 11.0 (7.0-16.0) 11/01/17 18:37 BUN 21 mg/dL (7-25) 11/01/17 18:37 Creatinine 0.9 mg/dL (0.6-1.2) 11/01/17 18:37 Est GFR ( Amer) TNP 11/01/17 18:37 Est GFR (Non-Af Amer) TNP 11/01/17 18:37 BUN/Creatinine Ratio 23.3 11/01/17 18:37 Glucose 106 mg/dL (70-105) H 11/01/17 18:37 Calcium 9.8 mg/dL (8.6-10.3) 11/01/17 18:37 Total Bilirubin 0.4 mg/dL (0.3-1.0) 11/01/17 18:37 AST 19 U/L (13-39) 11/01/17 18:37 ALT 16 U/L (7-52) 11/01/17 18:37 Alkaline Phosphatase 52 U/L (34-104) 11/01/17 18:37 Troponin I < 0.01 ng/mL (0.01-0.05) L 11/01/17 18:37 B-Natriuretic Peptide 22.3 pg/mL (5.0-100.0) 11/01/17 18:37 Total Protein 7.1 gm/dL (6.0-8.3) 11/01/17 18:37 Albumin 4.6 gm/dL (3.7-5.3) 11/01/17 18:37 Globulin 2.5 gm/dL 11/01/17 18:37 Albumin/Globulin Ratio 1.8 (1.0-1.8) 11/01/17 18:37 Urine Source RANDOM 11/01/17 18:00 Urine Color YELLOW 11/01/17 18:00 Urine Clarity CLEAR (CLEAR) 11/01/17 18:00 Urine pH 6.0 (4.6 - 8.0) 11/01/17 18:00 Ur Specific [place] 1.020 (1.005-1.030) 11/01/17 18:00 Urine Protein NEGATIVE mg/dL (NEGATIVE) 11/01/17 18:00 Urine Glucose (UA) NEGATIVE mg/dL (NEGATIVE) 11/01/17 18:00 Urine Ketones NEGATIVE mg/dL (NEGATIVE) 11/01/17 18:00 Urine Blood NEGATIVE (NEGATIVE) 11/01/17 18:00 Urine Nitrate NEGATIVE (NEGATIVE) 11/01/17 18:00 Urine Bilirubin NEGATIVE (NEGATIVE) 11/01/17 18:00 Urine Urobilinogen 0.2 E.U./dL (0.2 - 1.0) 11/01/17 18:00 Ur Leukocyte Esterase NEGATIVE (NEGATIVE) 11/01/17 18:00 Urine RBC 0-2 /hpf (0-5) 11/01/17 18:00 Urine WBC 0-2 /hpf (0-5) 11/01/17 18:00 Ur Epithelial Cells FEW /lpf (FEW) 11/01/17 18:00 Urine Bacteria FEW /hpf (NONE SEEN) 11/01/17 18:00 RPR NONREACTIVE (NONREACTIVE) 11/01/17 18:37 - Physical Exam Vitals and I&O: Vital Signs Temp 97.6 F 11/08/17 06:30 Pulse 64 11/08/17 06:30 Resp 19 11/08/17 06:30 BP 113/64 11/08/17 06:30 Pulse Ox 98 11/08/17 06:30 Intake & Output 11/07/17 11/08/17 11/08/17 18:59 06:59 18:59 Intake Total 1500 500 Balance 1500 500 Intake: Oral 1500 500 Other: # Voids 3 4 # Bowel Movements 0 1 Active Medications: Current Medications Acetaminophen (Tylenol) 650 mg PO Q4HR PRN PRN Reason: Mild Pain / Temp above 100 Stop: 01/01/18 00:23 Last Admin: 11/07/17 21:46 Dose: 650 mg Al Hydrox/Mg Hydrox/Simethicone (Maalox) 30 ml PO Q4H PRN PRN Reason: GERD Stop: 01/01/18 00:34 Donepezil HCl (Aricept) 10 mg PO HS [facility]AS Stop: 01/01/18 20:59 Last Admin: 11/07/17 21:46 Dose: 10 mg Lorazepam (Ativan) 0.5 mg PO Q4HR PRN; Protocol PRN Reason: Agitation Stop: 12/02/17 00:23 Last Admin: 11/07/17 15:23 Dose: 0.5 mg Magnesium Hydroxide (Milk Of Magnesia) 30 ml PO HS PRN PRN Reason: Constipation Multivitamins/Vitamin C (Theragran) 1 tab PO DAILY NICHOLAS Stop: 01/01/18 08:59 Last Admin: 11/08/17 09:39 Dose: 1 tab Olanzapine (Zyprexa) 5 mg PO HS [facility]; Protocol Stop: 01/01/18 20:59 Last Admin: 11/07/17 21:46 Dose: 5 mg Zolpidem Tartrate (Ambien) 5 mg PO HSMR1 PRN PRN Reason: Insomnia Stop: 01/01/18 00:23 Last Admin: 11/06/17 21:22 Dose: 5 mg General: no acute distress, well developed, well nourished HEENT: atraumatic, normocephalic, PERRLA, EOMI Neck: supple, no thyromegaly, no lymphadenopathy Cardiovascular: S1S2, regular Lungs: no clear to auscultation bilaterally, no clear to percussion Abdomen: soft, no tender, no distended, no mass Extremities: no cyanosis, no clubbing, no edema Neurological: awake, alert, oriented Skin: intact Infectious Disease Assmt/Plan - Problem List Patient Problems: All Active Problems INCREASED AGGRESSION AND AGITATION (Acute) - Assessment Assessment: Agitation - Plan Plan: as per psych. Nutritional Asmnt/Malnutr-PDOC - Dietary Evaluation Malnutrition Findings (Please click <Entered> for more info): Nutritional Asmnt/Malnutrition Start: 11/05/17 15: 12 Text: Status: Complete Freq: Protocol: Document 11/05/17 15:12 LCHENG (Rec: 11/05/17 15:23 [email or web address] [email or web address]) Nutritional Asmnt/Malnutrition Patient General Information Nutritional Screening Moderate Risk Diagnosis psychosis Pertinent Medical Hx/Surgical Hx OA, asthma Subjective Information Pt seen lying in bed at time of visit, waiting for lunch. Pt has no question or concern about current diet/meals. Per EMR, PO intake 75-100%. Current Diet Order/ Nutrition Support regular Pertinent Medications theragran Pertinent Labs 11/01 glucose 106 Nutritional Hx/Data Height 1.73 m Height (Calculated Centimeters) 172.7 Current Weight (lbs) 58.967 kg Weight (Calculated Kilograms) 59.0 Weight (Calculated Grams) 14699.0 Chunky Body Weight 140 Body Mass Index (BMI) 19.8 Weight Status Approriate GI Symptoms GI Symptoms None Last BM none Difficult in: None Skin Integrity/Comment: intact Current %PO Good (75-100%) Estimated Nutritional Goals BEE in Kcals: Using Current wt Calories/Kcals/Kg 25-30 Kcals Calculated 5925-6261 Protein: Using Current wt Protein g/k Protein Calculated 59 Fluid: ml 1475-1770ml (1ml/kcal) Nutritional Problem No current Nutrition Prob Problem N/A Malnutrition Alert Is there a minimum of two criteria No selected? Query Text:Check all the applicable criteria. A minimum of two criteria are recommended for diagnosis of either severe or non-severe malnutrition. Malnutrition Related to Morbid Obesity Malnutrition related to morbid obesity No Intervention/Recommendation Comments 1. Continue with regular diet as ordered. 2. Monitor PO intake, wt, labs and skin integrity 3. F/U as low risk in 7 days, 11/12 Expected Outcomes/Goals Expected Outcomes/Goals 1. PO intake to meet at least 75% of nutritional needs. 2. Wt stability, skin to remain intact, labs to approach WNL.
[2017-11-09] MEDS: Multivitamin Tab PO SCH (09:25)
--- NOTE | 2017-11-09 09:46 | Diagnostic Imaging Report ---
Head CT without intravenous contrast Indication: Left-sided weakness Comparison: None Technique: Axial images were obtained from the vertex to the skull base without IV contrast. Coronal reconstructions were made. Total DLP: 537, [id number] FINDINGS: Images of the brain obtained without contrast demonstrate large hemorrhage involving the high frontal lobe located to the right of the falx measuring 3.6 x 2.5 cm in greatest dimension with diffuse surrounding edema and mild mass effect. The ventricles are patent. No midline shift. Mild atrophy is noted. There is also small amount of subarachnoid hemorrhage seen involving the right frontal lobe. No evidence of a skull fracture or focal soft tissue swelling. The visualized paranasal sinuses are clear. IMPRESSION: Large 3.6 x 2.5 seen right high frontal lobe intraparenchymal hemorrhage located to the right of the falx with surrounding edema and mild mass effect. Small amount of subarachnoid hemorrhage is also seen along the right frontal lobe. Clinical correlation and follow-up recommended. No midline shift at this time. Critical results were administered and communicated to the referring team on 11/09/2017 at 9:40 AM.
--- NOTE | 2017-11-09 10:06 | Progress Notes ---
DATE: 11/06/2017 PSYCHIATRIC PROGRESS NOTE SUBJECTIVE: Chart reviewed and the patient interviewed. Also discussed the patient's condition with the staff and I reviewed the records and labs. The patient is still argumentative and she is still easily agitated. The patient also is forgetful and she has been unpredictable. The patient also is hyperverbal. She needs lots of redirections. Otherwise, the patient is compliant with taking her medications with no side effects of medications and she continued to take Zyprexa and Aricept. The patient thinks that she is "trapped here." She needs lots of reassurance. ASSESSMENT: The patient is still psychotic and agitated. TREATMENT PLAN: We will continue to monitor the patient's behavior and condition closely. Also, continue to work on ineffective coping and irritability and agitation. [facility]# [id number]
[2017-11-09 11:08] LABS: % EOSINOPHILS 3.8 % (0.0-5.0); % LYMPHOCYTES 16.5 % (20.0-50.0); % MONOCYTES 6.7 % (2.0-10.0); EOSINOPHILE ABSOLUTE 0.3 Th/cmm (0.1-0.4); HEMATOCRIT 37.9 % (41.0-60); HEMOGLOBIN 12.9 gm/dL (12-16); LYMPHOCYTE ABSOLUTE 1.5 Th/cmm (1.5-3.0); MEAN CELL VOLUME 86.1 fl (81-100); MEAN CORPUSCULAR HEMOGLOBIN 29.3 pg (27.0-31.0); MEAN CORPUSCULAR HGB CONC 34.1 pg (28.0-36.0); MEAN PLATELET VOLUME 8.1 fl; MONOCYTE ABSOLUTE 0.6 Th/cmm (0.3-1.0); NEUTROPHILE ABSOLUTE 6.8 Th/cmm (1.8-8.0); PLATELET COUNT 265 Th/cmm (150-400); RED BLOOD COUNT 4.41 Mil/cmm (3.80-5.20); RED CELL DISTRIBUTION WIDTH 12.6 % (11.5-20.0); WHITE BLOOD COUNT 9.2 Th/cmm (4.8-10.8)
[2017-11-09 11:18] LABS: INR 0.99 (0.5-1.4); PROTHROMBIN TIME (TEST) 10.3 SECONDS (9.5-11.5)
[2017-11-09 11:20] LABS: ALB/GLOB RATIO 1.7 (1.0-1.8); ALBUMIN 4.6 gm/dL (3.7-5.3); ALKALINE PHOSPHATASE 45 U/L (34-104); BILIRUBIN,TOTAL 0.4 mg/dL (0.3-1.0); BUN - UREA NITROGEN 15 mg/dL (7-25); CALCIUM SERUM 9.8 mg/dL (8.6-10.3); CARBON DIOXIDE 28.4 mEq/L (21.0-31.0); CHLORIDE 100 mEq/L (98-107); CREATININE - SERUM 0.8 mg/dL (0.6-1.2); GLUCOSE 108 mg/dL (70-105); POTASSIUM SERUM 4.4 mEq/L (3.5-5.1); SGOT 28 U/L (13-39); SGPT/ALT 17 U/L (7-52); SODIUM SERUM 136 mEq/L (136-145); TOTAL PROTEIN,SERUM 7.3 gm/dL (6.0-8.3)
--- NOTE | 2017-11-09 20:43 | Progress Notes ---
DATE: 11/07/2017 SUBJECTIVE: Chart reviewed and the patient interviewed. Also discussed the patient's condition with the staff and reviewed records and labs. The patient continued to be confused and she is still anxious and in irritable mood. The patient also is still argumentative. The patient also is paranoid and she thinks that she is a hostage in the hospital and ____ to the hospital. On the other hand, slightly less irritable and easier to redirect her. ASSESSMENT: The patient is still psychotic and agitated. TREATMENT PLAN: Continue monitoring her behavior and working on her impulse control and delusions. Also, continue Zyprexa 5 mg at bedtime and Aricept 10 mg every day and continue to follow up closely. JOB# [id number]
--- NOTE | 2017-11-09 21:08 | Progress Notes ---
DATE: 11/08/2017 SUBJECTIVE: Chart reviewed and the patient interviewed. Also, discussed the patient's condition with the staff and reviewed the records and labs. The patient continued to be delusional and she still thinks that her roommate comes on top of her while she is asleep. The patient also is still hyperverbal and confused and forgetful. She also still wanders around the unit. On the other hand, the patient seems to be slightly calmer than before and slightly easier to redirect her. The patient also is compliant with taking her medications with no side effects of Zyprexa or Aricept. ASSESSMENT: The patient is still confused and psychotic. TREATMENT PLAN: Continue Zyprexa same dose. Also, continue monitoring her psychotropic medications and monitoring her condition closely. JOB# [id number]
--- NOTE | 2017-11-10 01:23 | Progress Notes ---
DATE: 11/09/2017 SUBJECTIVE: The patient was seen in her room. According to staff and nurses, they noticed that the patient had left-sided weakness sometime around pressure supervisor with unknown exact time. No slurred speech, no facial droop. The patient is unable to stand on her own. Otherwise, the patient appears to be in no acute distress. OBJECTIVE: VITAL SIGNS: Temperature 97.8, heart rate 63, blood pressure 126/63, respiration 20 and 98% on room air. HEENT: Head is atraumatic and normocephalic. Eyes: Bilateral conjunctivae are clear. Bilateral pupils are equally round and reactive. NECK: Supple. No JVD. CARDIOVASCULAR: S1 and S2, without murmur. PULMONARY: Clear to auscultation. GASTROINTESTINAL: Soft and nontender without guarding. Positive bowel sounds. MUSCULOSKELETAL: No clubbing. No cyanosis noted. ASSESSMENT: 1. Dementia. 2. Asthma. 3. Osteoarthritis. 4. Unsteady gait. PLAN: We will do a stat CT scan of the head today to rule out any neurological issues. We will continue current treatment and follow up with psychiatrist to monitor the patient's condition and behavior. Treatment plans were discussed with the patient's nurse. Treatment plans were discussed with Dr. Costa. JOB# [id number]
--- NOTE | 2017-11-10 09:02 | Diagnostic Imaging Report ---
CHEST X-RAY: AP view INDICATION: Cough COMPARISON: 11/01/2017 FINDINGS: Chronic lung changes are seen with possible COPD. There is no focal consolidation or pleural effusions The heart is normal in size. Degenerative changes of the spine are noted. IMPRESSION: Chronic lung changes and possible COPD. No focal consolidation identified.
--- NOTE | 2017-11-11 12:54 | Discharge Summary ---
DATE OF DISCHARGE: 11/09/2017 AGE: 82. SEX: Female. PHYSICIAN: Dr. Latif. FINAL DIAGNOSIS: Unspecified psychosis. SECONDARY DIAGNOSIS: Dementia, moderate, with psychotic features. MEDICAL DIAGNOSIS: Rule out cerebrovascular accident. REASON FOR HOSPITALIZATION: The patient was admitted to the hospital because of increased anxiety and agitation and aggressive behavior. HOSPITAL COURSE: The patient was admitted to the Geropsych unit. The patient continued to take Zyprexa and Aricept. The patient had problem with her room. The patient was alert and oriented on 11/09/2017 in the morning, but after that I am not sure what happened, but staff indicated that the patient fell and hit her head with weakness on the left side. She also was agitated and yelling and screaming. The patient was transferred to ICU for monitoring her condition. Dr. Costa monitored the patient's medical condition while in the hospital. The patient was transferred to Med/Surg for followup and treatment of her condition. AFTER DISCHARGE PLANS: Depends on the patient's condition in ICU. EXPECTED OUTCOME AFTER DISCHARGE: Based on condition in ICU. JOB# [id number]
== END 2017-11-09 10:55 | disposition short-term general hospital (02) | DRG 885 ==
LOC: ER 17:29 → GERO2 22:53
PROVIDERS: ADMIT Psychiatry & Neurology Psychiatry; ATTEND Psychiatry & Neurology Psychiatry
DX: F29 Unspecified psychosis not due to a substance or known physiological condition (principal); F03.90 Unspecified dementia, unspecified severity, without behavioral disturbance, psychotic disturbance, mood disturbance, and anxiety; J45.909 Unspecified asthma, uncomplicated; M19.90 Unspecified osteoarthritis, unspecified site; R26.9 Unspecified abnormalities of gait and mobility
CPT/HCPCS: 36415-UA; 70450-TC; 71045-TC; 80053-TC; 81001-TC; 83880-TC; 84484-TC; 85025-TC; 85610-TC; 86592-TC; 93005; J2060; J7051; Z7610

== ENCOUNTER 2017-11-09 10:32 | Inpatient (IN) | payer MEDICARE, MEDICAID ==
[2017-11-09 11:39] VITALS: BP 133/61
[2017-11-09] MEDS ORDERED: SODIUM CHLORIDE 0.9% IV ONE (11:39)
[2017-11-09] MEDS ORDERED: MANNITOL 25% IV ONE (11:39)
[2017-11-09] MEDS ORDERED: MANNITOL 25% IV SCH (12:00)
[2017-11-09] MEDS ORDERED: SODIUM CHLORIDE 0.9% IV SCH (12:00)
--- NOTE | 2017-11-09 17:55 | History & Physical ---
ADMIT DATE: 11/09/2017 CHIEF COMPLAINT: Hemorrhagic stroke. HISTORY OF PRESENT ILLNESS: The patient is an 82-year-old female with a past medical history of dementia some psychosis, osteoarthritis, unsteady gait, admitted to [facility] Unit seen in Mental Health Unit for increased agitation. However, the patient developed left upper extremity and lower extremity weakness, by the night nurse. Mr. Jarvis, nurse practitioner was called and asked for a CT scan of the head. The CT scan of the head revealed 3.6 x 2.5 cm right high frontal lobe intraparenchymal hemorrhage located on the right of the falls with surrounding edema. There was mild mass effect. Small amount of subarachnoid hemorrhage was also seen along the right frontal lobe. The patient was transferred to the ICU. Higher facility were contacted and the patient has been accepted at [facility] for further care. Vitals are stable. The patient is alert and awake. Unable to provide appropriate history. PAST MEDICAL HISTORY: Includes psychosis, dementia, asthma, osteoarthritis, and unsteady gait. SOCIAL HISTORY: The patient lives in [facility]. No history of smoking, alcohol, or drug use. FAMILY HISTORY: Noncontributory. PAST SURGICAL HISTORY: Unremarkable. PSYCHIATRIC HISTORY: Psychosis and dementia. ALLERGIES: NKDA. MEDICATIONS: See medication reconciliation sheet. It includes right now Tylenol 650 mg p.o. every 4 hourly p.r.n., mannitol IV, and the patient was receiving Aricept, lorazepam, multivitamin, Zyprexa, and Ambien. REVIEW OF SYSTEMS: GENERAL: The patient has no fever, no chills. HEENT: No diplopia, no photophobia, no sore throat. RESPIRATORY: No cough, no shortness of breath. CVS: No chest pain or palpitation. GASTROINTESTINAL: No nausea, no vomiting, no diarrhea, no constipation. GENITOURINARY: No dysuria. NEUROLOGICAL: The patient has weakness of the left upper extremity and lower extremity. LABORATORY DATA: Current lab shows WBC 9200, hemoglobin 12.9, hematocrit 37.9, platelets are 265,000, neutrophils 73%, lymphocytes 16.5%. Sodium 136, potassium 4.4, chloride 100, bicarbonate is 28.4, BUN is 15, creatinine 0.8, glucose is 108. Urinalysis shows negative nitrite, negative leukoesterase. RPR, nonreactive. MRSA screen is negative. A head CT suggested a large 3.6 x 2.5 cm right high frontal lobe intraperitoneal hemorrhage located to the right of the falls with surrounding edema and mild mass effect. Small amount of subarachnoid hemorrhage is also seen along the right frontal area, right frontal lobe, no midline shift at this time. Chest x-ray shows no acute abnormality. IMPRESSION: 1. Cerebrovascular accident, hemorrhagic stroke. 2. Psychosis. 3. Dementia. 4. History of asthma. 5. Osteoarthritis. 6. Unsteady gait. PLAN: We will continue same treatment at this time. The patient was kept n.p.o. The patient is getting transferred to [facility] for further care. JOB# [id number]
--- NOTE | 2017-11-11 12:49 | Progress Notes ---
DATE: 11/09/2017 SUBJECTIVE: Chart reviewed and the patient interviewed. Also, discussed the patient's condition with the staff and reviewed records and labs. The patient is forgetful and she is confused. The patient also is still hyperverbal. She still has problems with her roommate. Otherwise, the patient denies any side effects of medications. We will continue same treatment and medications and continue to follow up. [facility]# [id number]
== END 2017-11-10 00:15 | disposition short-term general hospital (02) | DRG 64 ==
LOC: ICU 10:32
PROVIDERS: ADMIT Internal Medicine Infectious Disease; ATTEND Internal Medicine Infectious Disease
DX: I63.9 Cerebral infarction, unspecified (principal); I61.1 Nontraumatic intracerebral hemorrhage in hemisphere, cortical; G81.94 Hemiplegia, unspecified affecting left nondominant side; F03.90 Unspecified dementia, unspecified severity, without behavioral disturbance, psychotic disturbance, mood disturbance, and anxiety; M19.90 Unspecified osteoarthritis, unspecified site; J45.909 Unspecified asthma, uncomplicated; R26.9 Unspecified abnormalities of gait and mobility
CPT/HCPCS: 93005; X6522; Z7610

== ENCOUNTER 2018-07-23 19:38 | Inpatient (IN) | payer MEDICARE, MEDICAID ==
--- NOTE | 2018-07-23 20:51 | ED Physician Chart ---
ED Chief Complaint/HPI - Patient Information Date Seen:: 07/23/18 Time Seen:: 20:47 Chief Complaint:: increased confusion agitation History of Present Illness:: 83 yr old female from [facility] with increased confusion agitation no cp no nvdc no sob no headache or trauma Allergies:: Allergies Allergy/AdvReac Type Severity Reaction Status Date / Time No Known Allergies Allergy Verified 08/06/17 16:57 Vitals:: Vital Signs - 8 hr 07/23/18 20:00 Temp 97.5 F HR 70 RR 16 BP 124/68 O2 Sat % 92 ED Review of Systems - Review of Systems General/Constitutional: No fever, No chills, No weight loss, No weakness, No diaphoresis, No edema, No loss of appetite Skin: No skin lesions, No rash, No bruising Head: No headache, No light-headedness Eyes: No loss of vision, No pain, No diplopia ENT: No earache, No nasal drainage, No sore throat, No tinnitus Neck: No neck pain, No swelling, No thyromegaly, No stiffness, No mass noted Cardio Vascular: No chest pain, No palpitations, No PND, No orthopnea, No edema Pulmonary: No SOB, No cough, No sputum, No wheezing GI: No nausea, No vomiting, No diarrhea, No pain, No melena, No hematochezia, No constipation, No hematemesis G/U: No dysuria, No frequency, No hematuria Musculoskeletal: No bone or joint pain, No back pain, No muscle pain Endocrine: No polyuria, No polydipsia Psychiatric: No prior psych history, No depression, No anxiety, No suicidal ideation Hematopoietic: No bruising, No lymphadenopathy Allergic/Immuno: No urticaria, No angioedema Neurological: No syncope, No focal symptoms, No weakness, No paresthesia, No headache, No seizure, No dizziness, No confusion, No vertigo ED Past Medical History - Past Medical History Past Medical History: No significant medical hx Family Medical History - Family Member Son History Unknown: Yes Ethnicity: Unknown Living Status: Unknown ED Physical Exam - Physical Examination General/Constitutional: Awake, Well-developed, well-nourished, Alert, No distress, GCS 15, Non-toxic appearing, Ambulatory Head: Atraumatic Eyes: Lids, conjuctiva normal, PERRL, EOMI Skin: Nl inspection, No rash, No skin lesions, No ecchymosis, Well hydrated, No lymphadenopathy ENMT: External ears, nose nl, Nasal exam nl, Lips, teeth, gums nl Neck: Nontender, Full ROM w/o pain, No JVD, No nuchal rigidity, No bruit, No mass, No stridor Respiratory: Nl effort/Exclusion, Clear to Auscultation, No Wheeze/Rhonchi/Rales Cardio Vascular: RRR, No murmur, gallop, rubs, NL S1 S2 GI: No tenderness/rebounding/guarding, No organomegaly, No hernia, Normal BS's, Nondistended, No mass/bruits, No McBurney tenderness : No CVA tenderness Extremities: No tenderness or effusion, Full ROM, normal strength in all extremities, No edema, Normal digits & nails Neuro/Psych: Alert/oriented, DTR's symmetric, Normal sensory exam, Normal motor strength, Judgement/insight normal, Mood normal, Normal gait, No focal deficits Misc: Normal back, No paraspinal tenderness ED Assessment - Assessment General Assessment: increased confusion agitation ED Septic Shock - . Is Septic Shock (SBP<90, OR Lactate>4 mmol\L) present?: No - <6hrs of presentation: Vital Signs: Vital Signs - 8 hr 07/23/18 20:00 Temp 97.5 F HR 70 RR 16 BP 124/68 O2 Sat % 92 ED Reassessment (Disposition) - Reassessment Reassessment:: confusion agitation - Diagnosis Diagnosis:: as above - Patient Disposition Discharge/Transfer:: Acute Care w/in this hosp Condition at Disposition:: Stable
[2018-07-23 21:40] LABS: % BASOPHILS 0.2 % (0.0-2.0); % LYMPHOCYTES 22.8 % (20.0-50.0); % MONOCYTES 10.5 % (2.0-10.0); % NEUTROPHILS 63.5 % (40.0-80.0); EOSINOPHILE ABSOLUTE 0.2 Th/cmm (0.1-0.4); HEMATOCRIT 34.7 % (41.0-60); HEMOGLOBIN 11.8 gm/dL (12-16); LYMPHOCYTE ABSOLUTE 1.8 Th/cmm (1.5-3.0); MEAN CELL VOLUME 85.2 fl (81-100); MEAN CORPUSCULAR HEMOGLOBIN 28.9 pg (27.0-31.0); MEAN PLATELET VOLUME 7.6 fl; MONOCYTE ABSOLUTE 0.9 Th/cmm (0.3-1.0); NEUTROPHILE ABSOLUTE 5.2 Th/cmm (1.8-8.0); PLATELET COUNT 279 Th/cmm (150-400); RED BLOOD COUNT 4.08 Mil/cmm (3.80-5.20); RED CELL DISTRIBUTION WIDTH 12.4 % (11.5-20.0); WHITE BLOOD COUNT 8.1 Th/cmm (4.8-10.8)
[2018-07-23 21:57] LABS: ALB/GLOB RATIO 1.5 (1.0-1.8); ALKALINE PHOSPHATASE 55 U/L (34-104); ANION GAP 12.2 (7.0-16.0); BILIRUBIN,TOTAL 0.3 mg/dL (0.3-1.0); BUN - UREA NITROGEN 21 mg/dL (7-25); CALCIUM SERUM 9.4 mg/dL (8.6-10.3); CARBON DIOXIDE 28.6 mEq/L (21.0-31.0); CHLORIDE 100 mEq/L (98-107); CREATININE - SERUM 0.9 mg/dL (0.6-1.2); GLUCOSE 101 mg/dL (70-105); POTASSIUM SERUM 3.8 mEq/L (3.5-5.1); SGOT 16 U/L (13-39); SGPT/ALT 11 U/L (7-52); SODIUM SERUM 137 mEq/L (136-145); TOTAL PROTEIN,SERUM 6.6 gm/dL (6.0-8.3)
[2018-07-23 23:52] VITALS: BP 131/48
[2018-07-24] MEDS ORDERED: Maalox 30 mL Cup PO PRN (00:01)
[2018-07-24] MEDS ORDERED: Magnesium Hydroxide (MOM) 30 mL UDC PO PRN (00:01)
[2018-07-24] MEDS: Multivitamin w/ Minerals Tab PO SCH (08:32)
[2018-07-24 08:46] LABS: CHOLESTEROL 144 mg/dL (<200); HDL -HIGH DENSITY LIPOPROTEIN 58 mg/dL (23-92); TRIGLYCERIDES 70 mg/dL (<150)
[2018-07-24] MEDS ORDERED: Non-Formulary Item 1 EA (Cranberry [Cranberry] 400 MG) PO SCH (09:00)
--- NOTE | 2018-07-24 10:08 | History & Physical ---
ADMIT DATE: 07/24/2018 HISTORY OF PRESENT ILLNESS: An 83-year-old female. The patient came to the Emergency Room from [place] for increased confusion and agitation and the patient was admitted for Geropsych problem. PAST MEDICAL HISTORY: Not significant for past medical history. PHYSICAL EXAMINATION: GENERAL: Awake, alert, oriented. HEAD: Normal. ENT: Normal. NECK: Supple, nontender. LUNGS: Clear. CARDIOVASCULAR SYSTEM: S1 and S2 heard. ABDOMEN: Soft. Bowel sounds are heard. CENTRAL NERVOUS SYSTEM: Grossly normal. ASSESSMENT AND PLAN: Diagnoses of increasing confusion, increasing agitation, rule out psychosis was made. The patient is going to be admitted to Geropsych Unit and I will follow the patient there and along with the psychiatrist and I will continue to follow. [facility]# [id number]
--- NOTE | 2018-07-24 13:07 | Diagnostic Imaging Report ---
Left hip (3 views) HISTORY: Pain Joint space appears normal. The femoral head exhibits a normal contour. No acute abnormalities. No fractures. IMPRESSION: No acute abnormalities
[2018-07-25] MEDS: Multivitamin w/ Minerals Tab PO SCH (08:24)
--- NOTE | 2018-07-25 13:59 | Psychiatric Evaluation ---
DATE OF SERVICE: AGE: 83. SEX: Female. PHYSICIAN: Dr. Latif. CHIEF COMPLAINT: Poor food intake and hallucinations. HISTORY OF PRESENT ILLNESS: The patient is an 83-year-old female who was transferred from [facility] because of increased confusion accompanied by poor food intake and hallucinations. The patient also has been resisting care and has been talking to herself. She also has been having disorganized thoughts. The patient also has periods of irritability, but no aggressive behavior or agitation. During my interview, the patient was confused, although she tried to answer my questions. She also had flight of ideas. She did not know where does she lives or today's date, but she did remember her date, month and day, but not the year. PAST PSYCHIATRIC HISTORY: The patient seems to have history of possible dementia. PAST MEDICAL HISTORY: The patient has hypertension. She is also complaining of pain in her right hip. SOCIAL HISTORY: The patient lives in [facility]. No known alcohol or drug use. The patient has one son that lives in [facility]. ALLERGIES: No known allergies. MENTAL STATUS EXAMINATION: The patient appears her stated age. Anxious. Flat affect. Restless. In irritable mood. Trying to answer questions, but confused. The patient is alert and oriented to the situation, but not to the place or person or date. Impaired immediate and recent memory, but intact remote memory. Poor insight and poor judgment. ASSESSMENT: PRIMARY DIAGNOSIS: Psychosis, unspecified. SECONDARY DIAGNOSIS: Rule out dementia, moderate to severe, without psychotic features. TREATMENT PLAN: We will monitor the patient's behavior and condition closely. We will continue the patient on her current medications and will adjust psychotropic medications. Also, we will work on her confusion and poor food intake and her hallucinations. ESTIMATED LENGTH OF STAY: 5-7 days. THE PATIENT'S STRENGTHS AND WEAKNESSES: The patient's strength is not clear at this time except that she seems to be in relatively fair health and she has support of the staff in [place]. Weaknesses are her confusion and hallucinations. AFTER DISCHARGE PLAN: The patient will return to [place] with plans for outpatient treatment and follow up there. CRITERIA FOR DISCHARGE: The patient will not be psychotic or confused and will stabilize psychotropic medications and will establish outpatient treatment plans. [facility]# [id number]
--- NOTE | 2018-07-25 16:53 | Internal Medicine Prog Note ---
Internal Medicine Subjective - Subjective Service Date: 07/25/18 Patient seen and examined:: with staff Patient is:: awake, confused Per staff patient has:: tolerating meds Internal Medicine Objective - Results Result Diagrams: 07/23/18 21:34 07/23/18 21:34 Recent Labs: Laboratory Last Values WBC 8.1 Th/cmm (4.8-10.8) 07/23/18 21:34 RBC 4.08 Mil/cmm (3.80-5.20) 07/23/18 21:34 Hgb 11.8 gm/dL (12-16) L 07/23/18 21:34 Hct 34.7 % (41.0-60) L 07/23/18 21:34 MCV 85.2 fl (81-100) 07/23/18 21:34 MCH 28.9 pg (27.0-31.0) 07/23/18 21:34 MCHC Differential 34.0 pg (28.0-36.0) 07/23/18 21:34 RDW 12.4 % (11.5-20.0) 07/23/18 21:34 Plt Count 279 Th/cmm (150-400) 07/23/18 21:34 MPV 7.6 fl 07/23/18 21:34 Neutrophils % 63.5 % (40.0-80.0) 07/23/18 21:34 Lymphocytes % 22.8 % (20.0-50.0) 07/23/18 21:34 Monocytes % 10.5 % (2.0-10.0) H 07/23/18 21:34 Eosinophils % 3.0 % (0.0-5.0) 07/23/18 21:34 Basophils % 0.2 % (0.0-2.0) 07/23/18 21:34 Sodium 137 mEq/L (136-145) 07/23/18 21:34 Potassium 3.8 mEq/L (3.5-5.1) 07/23/18 21:34 Chloride 100 mEq/L (98-107) 07/23/18 21:34 Carbon Dioxide 28.6 mEq/L (21.0-31.0) 07/23/18 21:34 Anion Gap 12.2 (7.0-16.0) 07/23/18 21:34 BUN 21 mg/dL (7-25) 07/23/18 21:34 Creatinine 0.9 mg/dL (0.6-1.2) 07/23/18 21:34 Est GFR ( Amer) TNP 07/23/18 21:34 Est GFR (Non-Af Amer) TNP 07/23/18 21:34 BUN/Creatinine Ratio 23.3 07/23/18 21:34 Glucose 101 mg/dL (70-105) 07/23/18 21:34 Calcium 9.4 mg/dL (8.6-10.3) 07/23/18 21:34 Total Bilirubin 0.3 mg/dL (0.3-1.0) 07/23/18 21:34 AST 16 U/L (13-39) 07/23/18 21:34 ALT 11 U/L (7-52) 07/23/18 21:34 Alkaline Phosphatase 55 U/L (34-104) 07/23/18 21:34 Total Protein 6.6 gm/dL (6.0-8.3) 07/23/18 21:34 Albumin 4.0 gm/dL (3.7-5.3) 07/23/18 21:34 Globulin 2.6 gm/dL 07/23/18 21:34 Albumin/Globulin Ratio 1.5 (1.0-1.8) 07/23/18 21:34 Triglycerides 70 mg/dL (<150) 07/23/18 21:34 Cholesterol 144 mg/dL (<200) 07/23/18 21:34 LDL Cholesterol Direct 72 mg/dL (75-193) L 07/23/18 21:34 HDL Cholesterol 58 mg/dL (23-92) 07/23/18 21:34 TSH 3.71 uIU/ml (0.34-5.60) 07/23/18 21:34 - Physical Exam Vitals and I&O: Vital Signs Temp 98.7 F 07/25/18 14:00 Pulse 74 07/25/18 14:00 Resp 18 07/25/18 14:00 BP 120/78 07/25/18 14:00 Pulse Ox 97 07/25/18 14:00 Intake & Output 07/24/18 07/25/18 07/25/18 18:59 06:59 18:59 Intake Total 960 180 Balance 960 180 Intake: Oral 960 180 Other: # Voids 3 2 # Bowel Movements 0 0 Stool Characteristics Soft Soft Soft Active Medications: Current Medications Acetaminophen (Tylenol) 650 mg PO Q4HR PRN PRN Reason: Mild Pain / Temp above 100 Stop: 09/21/18 23:53 Al Hydrox/Mg Hydrox/Simethicone (Maalox) 5 ml PO Q4H PRN PRN Reason: GI DISTRESS Stop: 09/22/18 00:00 Docusate Sodium (Colace) 250 mg PO DAILY [facility] Stop: 09/22/18 08:59 Last Admin: 07/25/18 08:24 Dose: 250 mg Donepezil HCl (Aricept) 10 mg PO HS [facility] Stop: 09/22/18 20:59 Last Admin: 07/24/18 20:17 Dose: 10 mg Lorazepam (Ativan) 0.5 mg PO Q4HR PRN; Protocol PRN Reason: Anxiety Stop: 08/22/18 23:53 Magnesium Hydroxide (Milk Of Magnesia) 30 ml PO HS PRN PRN Reason: Constipation Stop: 09/22/18 00:00 Olanzapine (Zyprexa) 5 mg PO HS [facility]ICHOLAS; Protocol Stop: 09/22/18 20:59 Last Admin: 07/24/18 20:17 Dose: 5 mg Zolpidem Tartrate (Ambien) 5 mg PO HS [facility] Stop: 09/22/18 20:59 Last Admin: 07/24/18 20:17 Dose: 5 mg General: alert HEENT: NC/AT, PERRLA Neck: Supple Lungs: CTAB Cardiovascular: Normal S1, Normal S2, without murmur Abdomen: soft, non-tender, non-distended Extremities: excoriation Internal Medicine Assmt/Plan - Assessment Assessment: dementia psychosis - Plan Plan: fall precautions cpm
--- NOTE | 2018-07-26 00:29 | Progress Notes ---
DATE: SUBJECTIVE: Chart reviewed and the patient interviewed. Also discussed the patient's condition with the staff and reviewed records and labs. The patient remains confused and he is still anxious. The patient also still needs a lot of redirection. The patient also still had episodes of irritability and agitation, but not too easier to redirect her. She also is compliant with taking medications and the patient started on Zyprexa 5 mg at bedtime and Aricept at 10 mg at bedtime. We will continue same dose and continue to monitor her behavior and her condition closely. [facility]# [id number]
[2018-07-26] MEDS: Multivitamin w/ Minerals Tab PO SCH (09:44)
--- NOTE | 2018-07-27 04:45 | Progress Notes ---
DATE: 07/26/2018 Case was discussed with staff of the patient, reviewed records. Covering for Dr. Latif. This is an 83-year-old female who was admitted on 07/23/2018, transferred from [facility] because of increasing confusion, noncompliant with medications, not eating, hallucinating, resisting care, talking to herself, very confused, easily agitated, continues to need redirection. Continues to be easily angered, unable to be easily redirected. She was started on Zyprexa 5 mg at bedtime, Aricept 10 mg at bedtime. No side effects of the medication, no sedation or nausea, no extrapyramidal symptoms. We will continue the patient in group therapy, milieu therapy, and adjust medications as needed. JOB# [id number]
[2018-07-27] MEDS: Multivitamin w/ Minerals Tab PO SCH (10:23)
--- NOTE | 2018-07-27 11:51 | Internal Medicine Prog Note ---
Internal Medicine Subjective - Subjective Patient seen and examined:: chart reviewed Patient is:: awake, confused, other (admitted for increased confusion and hallucinating ,not compliant ) Per staff patient has:: no adverse event, tolerating meds Internal Medicine Objective - Results Result Diagrams: 07/23/18 21:34 07/23/18 21:34 Recent Labs: Laboratory Last Values WBC 8.1 Th/cmm (4.8-10.8) 07/23/18 21:34 RBC 4.08 Mil/cmm (3.80-5.20) 07/23/18 21:34 Hgb 11.8 gm/dL (12-16) L 07/23/18 21:34 Hct 34.7 % (41.0-60) L 07/23/18 21:34 MCV 85.2 fl (81-100) 07/23/18 21:34 MCH 28.9 pg (27.0-31.0) 07/23/18 21:34 MCHC Differential 34.0 pg (28.0-36.0) 07/23/18 21:34 RDW 12.4 % (11.5-20.0) 07/23/18 21:34 Plt Count 279 Th/cmm (150-400) 07/23/18 21:34 MPV 7.6 fl 07/23/18 21:34 Neutrophils % 63.5 % (40.0-80.0) 07/23/18 21:34 Lymphocytes % 22.8 % (20.0-50.0) 07/23/18 21:34 Monocytes % 10.5 % (2.0-10.0) H 07/23/18 21:34 Eosinophils % 3.0 % (0.0-5.0) 07/23/18 21:34 Basophils % 0.2 % (0.0-2.0) 07/23/18 21:34 Sodium 137 mEq/L (136-145) 07/23/18 21:34 Potassium 3.8 mEq/L (3.5-5.1) 07/23/18 21:34 Chloride 100 mEq/L (98-107) 07/23/18 21:34 Carbon Dioxide 28.6 mEq/L (21.0-31.0) 07/23/18 21:34 Anion Gap 12.2 (7.0-16.0) 07/23/18 21:34 BUN 21 mg/dL (7-25) 07/23/18 21:34 Creatinine 0.9 mg/dL (0.6-1.2) 07/23/18 21:34 Est GFR ( Amer) TNP 07/23/18 21:34 Est GFR (Non-Af Amer) TNP 07/23/18 21:34 BUN/Creatinine Ratio 23.3 07/23/18 21:34 Glucose 101 mg/dL (70-105) 07/23/18 21:34 Calcium 9.4 mg/dL (8.6-10.3) 07/23/18 21:34 Total Bilirubin 0.3 mg/dL (0.3-1.0) 07/23/18 21:34 AST 16 U/L (13-39) 07/23/18 21:34 ALT 11 U/L (7-52) 07/23/18 21:34 Alkaline Phosphatase 55 U/L (34-104) 07/23/18 21:34 Total Protein 6.6 gm/dL (6.0-8.3) 07/23/18 21:34 Albumin 4.0 gm/dL (3.7-5.3) 07/23/18 21:34 Globulin 2.6 gm/dL 07/23/18 21:34 Albumin/Globulin Ratio 1.5 (1.0-1.8) 07/23/18 21:34 Triglycerides 70 mg/dL (<150) 07/23/18 21:34 Cholesterol 144 mg/dL (<200) 07/23/18 21:34 LDL Cholesterol Direct 72 mg/dL (75-193) L 07/23/18 21:34 HDL Cholesterol 58 mg/dL (23-92) 07/23/18 21:34 TSH 3.71 uIU/ml (0.34-5.60) 07/23/18 21:34 - Physical Exam Vitals and I&O: Vital Signs Temp 98.1 F 07/27/18 06:30 Pulse 69 07/27/18 06:30 Resp 18 07/27/18 06:30 BP 122/65 07/27/18 06:30 Pulse Ox 97 07/27/18 06:30 Intake & Output 07/26/18 07/27/18 07/27/18 18:59 06:59 18:59 Intake Total 960 120 Balance 960 120 Intake: Oral 960 120 Other: # Voids 3 3 # Bowel Movements 1 Stool Characteristics Soft Active Medications: Current Medications Acetaminophen (Tylenol) 650 mg PO Q4HR PRN PRN Reason: Mild Pain / Temp above 100 Stop: 09/21/18 23:53 Last Admin: 07/26/18 17:25 Dose: 650 mg Al Hydrox/Mg Hydrox/Simethicone (Maalox) 5 ml PO Q4H PRN PRN Reason: GI DISTRESS Stop: 09/22/18 00:00 Docusate Sodium (Colace) 250 mg PO DAILY NICHOLAS Stop: 09/22/18 08:59 Last Admin: 07/27/18 10:24 Dose: 250 mg Donepezil HCl (Aricept) 10 mg PO HS NICHOLAS Stop: 09/22/18 20:59 Last Admin: 07/26/18 21:18 Dose: 10 mg Lorazepam (Ativan) 0.5 mg PO Q4HR PRN; Protocol PRN Reason: Anxiety Stop: 08/22/18 23:53 Last Admin: 07/27/18 10:24 Dose: 0.5 mg Magnesium Hydroxide (Milk Of Magnesia) 30 ml PO HS PRN PRN Reason: Constipation Stop: 09/22/18 00:00 Olanzapine (Zyprexa) 5 mg PO HS NICHOLAS; Protocol Stop: 09/22/18 20:59 Last Admin: 07/26/18 21:17 Dose: 5 mg Zolpidem Tartrate (Ambien) 5 mg PO HS [facility] Stop: 09/22/18 20:59 Last Admin: 07/26/18 21:17 Dose: 5 mg General: alert, other (very confused) HEENT: NC/AT, PERRLA Neck: Supple Lungs: CTAB Cardiovascular: Normal S1, Normal S2, without murmur Abdomen: soft, non-tender, non-distended Extremities: excoriation Internal Medicine Assmt/Plan - Assessment Assessment: increase confusion increase agitation - Plan Plan: as per psych Nutritional Asmnt/Malnutr-PDOC - Dietary Evaluation Malnutrition Findings (Please click <Entered> for more info): Nutritional Asmnt/Malnutrition Start: 07/26/18 09: 22 Text: Status: Complete Freq: Protocol: Document 07/26/18 09:22 JENIFFER (Rec: 07/26/18 09:30 JENIFFER SHAUN- FNS1) Nutritional Asmnt/Malnutrition Patient General Information Nutritional Screening Moderate Risk Diagnosis Psychosis NOS Pertinent Medical Hx/Surgical Hx 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 Subjective Information Patient was admitted from SNF. Talking to MD at time of visit. Current Diet Order/ Nutrition Support Mechanical soft, no added sodium Patient / S.O Not Indicated Pertinent Medications maalox, colace, MOM Pertinent Labs WNL Nutritional Hx/Data Height 1.73 m Height (Calculated Centimeters) 172.7 Current Weight (lbs) 54.431 kg Weight (Calculated Kilograms) 54.4 Weight (Calculated Grams) 71034.1 [place] Body Weight 140 % [place] Body Weight 85 Body Mass Index (BMI) 18.2 Recent Weight Change No Weight Status Underweight GI Symptoms GI Symptoms None Last BM 07/25 x 1 Difficult in: None Food Allergies No Cultural/Ethnic/B[employer]ist Belief none indicated Usual diet at home unknown Skin Integrity/Comment: Heraclio 14, intact Current %PO Good (75-100%) Estimated Nutritional Goals BEE in Kcals: Using Current wt Calories/Kcals/Kg CBW 54.4 kg 30-35 kcal/kg ( underweight) Kcals Calculated 3361-2689 kcal/day Protein: Using Current wt Protein g/k-1.2 gm/kg Protein Calculated 55-65 gm/day Fluid: ml 5878-1850 ml/day (1 ml/kcal) Nutritional Problem 1. Problem Problem Underweight Etiology related to possible poor intake prior to admission, age aeb Signs/Symptoms: BMI 18.2 Intervention/Recommendation Comments 1. Continue mechanical soft, no added sodium diet as tolerated by patient. 2. With PO intake 75-100% of meals, no need for supplements at this time. Continue to monitor intake and weight. Expected Outcomes/Goals Expected Outcomes/Goals Oral intake >75% of meals, weight stable or trend toward IBW, nutrition related labs WNL. F/U LR 08/02
--- NOTE | 2018-07-27 15:49 | Progress Notes ---
DATE: 07/27/2018 Case was discussed with staff of the patient, reviewed records. The patient continues to be very confused. She does not know how long she has been here. She does not know where she is, why she is here. She is currently preoccupied, easily agitated. She wants to leave this place. She is unable to make safe plan for self-care, unable to make a reasonable conversation and take care of herself. No side effects of the medication, no sedation or nausea, no extrapyramidal symptoms. I will continue to work with the patient in group therapy, milieu therapy, and adjust the medications as needed. JOB# [id number]
[2018-07-28] MEDS: Multivitamin w/ Minerals Tab PO SCH (11:52)
--- NOTE | 2018-07-28 20:43 | Internal Medicine Prog Note ---
Internal Medicine Subjective - Subjective Service Date: 07/28/18 Patient seen and examined:: with staff, chart reviewed Patient is:: awake, agitated, confused, other (admitted for increased confusion and hallucinating ,not compliant ) Patient Complaints of:: other (Does not where she is, very disoriented.) Per staff patient has:: no adverse event, no episodes of fall, tolerating meds Internal Medicine Objective - Results Result Diagrams: 07/23/18 21:34 07/23/18 21:34 Recent Labs: Laboratory Last Values WBC 8.1 Th/cmm (4.8-10.8) 07/23/18 21:34 RBC 4.08 Mil/cmm (3.80-5.20) 07/23/18 21:34 Hgb 11.8 gm/dL (12-16) L 07/23/18 21:34 Hct 34.7 % (41.0-60) L 07/23/18 21:34 MCV 85.2 fl (81-100) 07/23/18 21:34 MCH 28.9 pg (27.0-31.0) 07/23/18 21:34 MCHC Differential 34.0 pg (28.0-36.0) 07/23/18 21:34 RDW 12.4 % (11.5-20.0) 07/23/18 21:34 Plt Count 279 Th/cmm (150-400) 07/23/18 21:34 MPV 7.6 fl 07/23/18 21:34 Neutrophils % 63.5 % (40.0-80.0) 07/23/18 21:34 Lymphocytes % 22.8 % (20.0-50.0) 07/23/18 21:34 Monocytes % 10.5 % (2.0-10.0) H 07/23/18 21:34 Eosinophils % 3.0 % (0.0-5.0) 07/23/18 21:34 Basophils % 0.2 % (0.0-2.0) 07/23/18 21:34 Sodium 137 mEq/L (136-145) 07/23/18 21:34 Potassium 3.8 mEq/L (3.5-5.1) 07/23/18 21:34 Chloride 100 mEq/L (98-107) 07/23/18 21:34 Carbon Dioxide 28.6 mEq/L (21.0-31.0) 07/23/18 21:34 Anion Gap 12.2 (7.0-16.0) 07/23/18 21:34 BUN 21 mg/dL (7-25) 07/23/18 21:34 Creatinine 0.9 mg/dL (0.6-1.2) 07/23/18 21:34 Est GFR ( Amer) TNP 07/23/18 21:34 Est GFR (Non-Af Amer) TNP 07/23/18 21:34 BUN/Creatinine Ratio 23.3 07/23/18 21:34 Glucose 101 mg/dL (70-105) 07/23/18 21:34 Calcium 9.4 mg/dL (8.6-10.3) 07/23/18 21:34 Total Bilirubin 0.3 mg/dL (0.3-1.0) 07/23/18 21:34 AST 16 U/L (13-39) 07/23/18 21:34 ALT 11 U/L (7-52) 07/23/18 21:34 Alkaline Phosphatase 55 U/L (34-104) 07/23/18 21:34 Total Protein 6.6 gm/dL (6.0-8.3) 07/23/18 21:34 Albumin 4.0 gm/dL (3.7-5.3) 07/23/18 21:34 Globulin 2.6 gm/dL 07/23/18 21:34 Albumin/Globulin Ratio 1.5 (1.0-1.8) 07/23/18 21:34 Triglycerides 70 mg/dL (<150) 07/23/18 21:34 Cholesterol 144 mg/dL (<200) 07/23/18 21:34 LDL Cholesterol Direct 72 mg/dL (75-193) L 07/23/18 21:34 HDL Cholesterol 58 mg/dL (23-92) 07/23/18 21:34 TSH 3.71 uIU/ml (0.34-5.60) 07/23/18 21:34 - Physical Exam Vitals and I&O: Vital Signs Temp 99.2 F 07/28/18 20:15 Pulse 76 07/28/18 20:15 Resp 18 07/28/18 20:15 BP 120/58 07/28/18 20:15 Pulse Ox 93 07/28/18 20:15 Intake & Output 07/28/18 07/28/18 07/29/18 06:59 18:59 06:59 Intake Total 120 60 Balance 120 60 Intake: Oral 120 60 Other: # Voids 3 1 # Bowel Movements 1 Stool Characteristics Soft Active Medications: Current Medications Acetaminophen (Tylenol) 650 mg PO Q4HR PRN PRN Reason: Mild Pain / Temp above 100 Stop: 09/21/18 23:53 Last Admin: 07/26/18 17:25 Dose: 650 mg Al Hydrox/Mg Hydrox/Simethicone (Maalox) 5 ml PO Q4H PRN PRN Reason: GI DISTRESS Stop: 09/22/18 00:00 Docusate Sodium (Colace) 250 mg PO DAILY [facility] Stop: 09/22/18 08:59 Last Admin: 07/28/18 11:52 Dose: Not Given Donepezil HCl (Aricept) 10 mg PO HS [facility] Stop: 09/22/18 20:59 Last Admin: 07/27/18 20:57 Dose: 10 mg Lorazepam (Ativan) 0.5 mg PO Q4HR PRN; Protocol PRN Reason: Anxiety Stop: 08/22/18 23:53 Last Admin: 07/28/18 01:07 Dose: 0.5 mg Magnesium Hydroxide (Milk Of Magnesia) 30 ml PO HS PRN PRN Reason: Constipation Stop: 09/22/18 00:00 Memantine (Namenda) 5 mg PO DAILY NICHOLAS Stop: 09/27/18 08:59 Olanzapine (Zyprexa) 5 mg PO HS [facility]; Protocol Stop: 09/22/18 20:59 Last Admin: 07/27/18 20:56 Dose: 5 mg Zolpidem Tartrate (Ambien) 5 mg PO HS [facility] Stop: 09/22/18 20:59 Last Admin: 07/27/18 20:57 Dose: 5 mg Physical Exam: 89 y/o female patient is very disoriented and confused. General: alert, other (very confused) HEENT: NC/AT, PERRLA Neck: Supple Lungs: CTAB Cardiovascular: Normal S1, Normal S2, without murmur Abdomen: soft, non-tender, non-distended Extremities: excoriation Neurological: no change Internal Medicine Assmt/Plan - Assessment Assessment: increase confusion increase agitation - Plan Plan: as per psych Nutritional Asmnt/Malnutr-PDOC - Dietary Evaluation Malnutrition Findings (Please click <Entered> for more info): Nutritional Asmnt/Malnutrition Start: 07/26/18 09: 22 Text: Status: Complete Freq: Protocol: Document 07/26/18 09:22 FRANCOISSidney (Rec: 07/26/18 09:30 MMSINDHU SHAUN- FNS1) Nutritional Asmnt/Malnutrition Patient General Information Nutritional Screening Moderate Risk Diagnosis Psychosis NOS Pertinent Medical Hx/Surgical Hx 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 Subjective Information Patient was admitted from SNF. Talking to MD at time of visit. Current Diet Order/ Nutrition Support Mechanical soft, no added sodium Patient / S.O Not Indicated Pertinent Medications maalox, colace, MOM Pertinent Labs WNL Nutritional Hx/Data Height 1.73 m Height (Calculated Centimeters) 172.7 Current Weight (lbs) 54.431 kg Weight (Calculated Kilograms) 54.4 Weight (Calculated Grams) 46115.1 [place] Body Weight 140 % [place] Body Weight 85 Body Mass Index (BMI) 18.2 Recent Weight Change No Weight Status Underweight GI Symptoms GI Symptoms None Last BM 07/25 x 1 Difficult in: None Food Allergies No Cultural/Ethnic/Taoist Belief none indicated Usual diet at home unknown Skin Integrity/Comment: Heraclio 14, intact Current %PO Good (75-100%) Estimated Nutritional Goals BEE in Kcals: Using Current wt Calories/Kcals/Kg CBW 54.4 kg 30-35 kcal/kg ( underweight) Kcals Calculated 9468-9315 kcal/day Protein: Using Current wt Protein g/k-1.2 gm/kg Protein Calculated 55-65 gm/day Fluid: ml 5264-4465 ml/day (1 ml/kcal) Nutritional Problem 1. Problem Problem Underweight Etiology related to possible poor intake prior to admission, age aeb Signs/Symptoms: BMI 18.2 Intervention/Recommendation Comments 1. Continue mechanical soft, no added sodium diet as tolerated by patient. 2. With PO intake 75-100% of meals, no need for supplements at this time. Continue to monitor intake and weight. Expected Outcomes/Goals Expected Outcomes/Goals Oral intake >75% of meals, weight stable or trend toward IBW, nutrition related labs WNL. F/U LR 08/02
--- NOTE | 2018-07-28 23:18 | Progress Notes ---
DATE: 07/28/2018 Case was discussed with staff of the patient, reviewed records. The patient continues to be unpredictable, impulsive, needing redirection. She is confused, demented, internally preoccupied, easily agitated. She is preoccupied, wanting to leave this place. However, she is unable to make safe plan for self-care, unpredictable, impulsive. She is on Aricept 10 mg at bedtime, olanzapine 5 mg at bedtime. No side effects from the medication, no sedation, no nausea and no extrapyramidal symptoms. I will be adding Namenda for her medication to help with her cognition and we will continue to work with the patient in group therapy, milieu therapy, adjust the medication as needed. [facility]# [id number]
[2018-07-29] MEDS: Multivitamin w/ Minerals Tab PO SCH (08:30)
--- NOTE | 2018-07-29 14:07 | Internal Medicine Prog Note ---
Internal Medicine Subjective - Subjective Service Date: 07/29/18 Patient is:: awake, agitated, confused, other (admitted for increased confusion and hallucinating ,not compliant ) Patient Complaints of:: other (Does not where she is, very disoriented.) Per staff patient has:: no adverse event, no episodes of fall, tolerating meds Internal Medicine Objective - Results Result Diagrams: 07/23/18 21:34 07/23/18 21:34 Recent Labs: Laboratory Last Values WBC 8.1 Th/cmm (4.8-10.8) 07/23/18 21:34 RBC 4.08 Mil/cmm (3.80-5.20) 07/23/18 21:34 Hgb 11.8 gm/dL (12-16) L 07/23/18 21:34 Hct 34.7 % (41.0-60) L 07/23/18 21:34 MCV 85.2 fl (81-100) 07/23/18 21:34 MCH 28.9 pg (27.0-31.0) 07/23/18 21:34 MCHC Differential 34.0 pg (28.0-36.0) 07/23/18 21:34 RDW 12.4 % (11.5-20.0) 07/23/18 21:34 Plt Count 279 Th/cmm (150-400) 07/23/18 21:34 MPV 7.6 fl 07/23/18 21:34 Neutrophils % 63.5 % (40.0-80.0) 07/23/18 21:34 Lymphocytes % 22.8 % (20.0-50.0) 07/23/18 21:34 Monocytes % 10.5 % (2.0-10.0) H 07/23/18 21:34 Eosinophils % 3.0 % (0.0-5.0) 07/23/18 21:34 Basophils % 0.2 % (0.0-2.0) 07/23/18 21:34 Sodium 137 mEq/L (136-145) 07/23/18 21:34 Potassium 3.8 mEq/L (3.5-5.1) 07/23/18 21:34 Chloride 100 mEq/L (98-107) 07/23/18 21:34 Carbon Dioxide 28.6 mEq/L (21.0-31.0) 07/23/18 21:34 Anion Gap 12.2 (7.0-16.0) 07/23/18 21:34 BUN 21 mg/dL (7-25) 07/23/18 21:34 Creatinine 0.9 mg/dL (0.6-1.2) 07/23/18 21:34 Est GFR ( Amer) TNP 07/23/18 21:34 Est GFR (Non-Af Amer) TNP 07/23/18 21:34 BUN/Creatinine Ratio 23.3 07/23/18 21:34 Glucose 101 mg/dL (70-105) 07/23/18 21:34 Calcium 9.4 mg/dL (8.6-10.3) 07/23/18 21:34 Total Bilirubin 0.3 mg/dL (0.3-1.0) 07/23/18 21:34 AST 16 U/L (13-39) 07/23/18 21:34 ALT 11 U/L (7-52) 07/23/18 21:34 Alkaline Phosphatase 55 U/L (34-104) 07/23/18 21:34 Total Protein 6.6 gm/dL (6.0-8.3) 07/23/18 21:34 Albumin 4.0 gm/dL (3.7-5.3) 07/23/18 21:34 Globulin 2.6 gm/dL 07/23/18 21:34 Albumin/Globulin Ratio 1.5 (1.0-1.8) 07/23/18 21:34 Triglycerides 70 mg/dL (<150) 07/23/18 21:34 Cholesterol 144 mg/dL (<200) 07/23/18 21:34 LDL Cholesterol Direct 72 mg/dL (75-193) L 07/23/18 21:34 HDL Cholesterol 58 mg/dL (23-92) 07/23/18 21:34 TSH 3.71 uIU/ml (0.34-5.60) 07/23/18 21:34 - Physical Exam Vitals and I&O: Vital Signs Temp 96.9 F 07/29/18 06:21 Pulse 73 07/29/18 06:21 Resp 20 07/29/18 06:21 BP 141/64 07/29/18 06:21 Pulse Ox 97 07/29/18 06:21 Intake & Output 07/28/18 07/29/18 07/29/18 18:59 06:59 18:59 Intake Total 60 Balance 60 Weight (lbs) 120 lb Intake: Oral 60 Other: # Voids 3 # Bowel Movements 0 Weight Source Bedscale Active Medications: Current Medications Acetaminophen (Tylenol) 650 mg PO Q4HR PRN PRN Reason: Mild Pain / Temp above 100 Stop: 09/21/18 23:53 Last Admin: 07/26/18 17:25 Dose: 650 mg Al Hydrox/Mg Hydrox/Simethicone (Maalox) 5 ml PO Q4H PRN PRN Reason: GI DISTRESS Stop: 09/22/18 00:00 Docusate Sodium (Colace) 250 mg PO DAILY [facility] Stop: 09/22/18 08:59 Last Admin: 07/29/18 08:30 Dose: 250 mg Donepezil HCl (Aricept) 10 mg PO HS [facility] Stop: 09/22/18 20:59 Last Admin: 07/28/18 21:46 Dose: 10 mg Lorazepam (Ativan) 0.5 mg PO Q4HR PRN; Protocol PRN Reason: Anxiety Stop: 08/22/18 23:53 Last Admin: 07/28/18 01:07 Dose: 0.5 mg Magnesium Hydroxide (Milk Of Magnesia) 30 ml PO HS PRN PRN Reason: Constipation Stop: 09/22/18 00:00 Memantine (Namenda) 5 mg PO DAILY [facility] Stop: 09/27/18 08:59 Last Admin: 07/29/18 08:57 Dose: 5 mg Olanzapine (Zyprexa) 5 mg PO HS [facility]; Protocol Stop: 09/22/18 20:59 Last Admin: 07/28/18 21:46 Dose: 5 mg Zolpidem Tartrate (Ambien) 5 mg PO HS [facility] Stop: 09/22/18 20:59 Last Admin: 07/28/18 21:46 Dose: 5 mg General: alert, other (very confused) HEENT: NC/AT, PERRLA Neck: Supple Lungs: CTAB Cardiovascular: Normal S1, Normal S2, without murmur Abdomen: soft, non-tender, non-distended Extremities: excoriation Neurological: no change Internal Medicine Assmt/Plan - Assessment Assessment: dementia psychosis - Plan Plan: fall precautions cpm Nutritional Asmnt/Malnutr-PDOC - Dietary Evaluation Malnutrition Findings (Please click <Entered> for more info): Nutritional Asmnt/Malnutrition Start: 07/26/18 09: 22 Text: Status: Complete Freq: Protocol: Document 07/26/18 09:22 IGORPRIMOHAWA (Rec: 07/26/18 09:30 JENIFFER SHAUN- FNS1) Nutritional Asmnt/Malnutrition Patient General Information Nutritional Screening Moderate Risk Diagnosis Psychosis NOS Pertinent Medical Hx/Surgical Hx 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 Subjective Information Patient was admitted from SNF. Talking to MD at time of visit. Current Diet Order/ Nutrition Support Mechanical soft, no added sodium Patient / S.O Not Indicated Pertinent Medications maalox, colace, MOM Pertinent Labs WNL Nutritional Hx/Data Height 5 ft 8 in Height (Calculated Centimeters) 172.7 Current Weight (lbs) 120 lb Weight (Calculated Kilograms) 54.4 Weight (Calculated Grams) 34774.1 [place] Body Weight 140 % [place] Body Weight 85 Body Mass Index (BMI) 18.2 Recent Weight Change No Weight Status Underweight GI Symptoms GI Symptoms None Last BM 07/25 x 1 Difficult in: None Food Allergies No Cultural/Ethnic/Yazidi Belief none indicated Usual diet at home unknown Skin Integrity/Comment: Heraclio 14, intact Current %PO Good (75-100%) Estimated Nutritional Goals BEE in Kcals: Using Current wt Calories/Kcals/Kg CBW 54.4 kg 30-35 kcal/kg ( underweight) Kcals Calculated 4270-4026 kcal/day Protein: Using Current wt Protein g/k-1.2 gm/kg Protein Calculated 55-65 gm/day Fluid: ml 1887-1874 ml/day (1 ml/kcal) Nutritional Problem 1. Problem Problem Underweight Etiology related to possible poor intake prior to admission, age aeb Signs/Symptoms: BMI 18.2 Intervention/Recommendation Comments 1. Continue mechanical soft, no added sodium diet as tolerated by patient. 2. With PO intake 75-100% of meals, no need for supplements at this time. Continue to monitor intake and weight. Expected Outcomes/Goals Expected Outcomes/Goals Oral intake >75% of meals, weight stable or trend toward IBW, nutrition related labs WNL. F/U LR 08/02
--- NOTE | 2018-07-30 00:47 | Progress Notes ---
DATE: 07/29/2018 Case was discussed with staff of the patient and reviewed records. The patient continues to be confused and demented. She continues to be unable to make safe plan for her self-care. She continues to have poor insight, needing redirection. Sleeping well and eating well. We are working on placement. No side effects, no sedation, no nausea, no extrapyramidal symptoms. We will continue to work with the patient in group therapy, milieu therapy, and adjust the medications as needed. JOB# [id number]
[2018-07-30] MEDS: Multivitamin w/ Minerals Tab PO SCH (09:05)
--- NOTE | 2018-07-30 16:25 | Internal Medicine Prog Note ---
Internal Medicine Subjective - Subjective Patient seen and examined:: chart reviewed (pt. confused) Patient is:: awake, agitated, confused, other (admitted for increased confusion and hallucinating ,not compliant ) Patient Complaints of:: other (Does not where she is, very disoriented.) Per staff patient has:: no adverse event, no episodes of fall, tolerating meds Internal Medicine Objective - Results Result Diagrams: 07/23/18 21:34 07/23/18 21:34 Recent Labs: Laboratory Last Values WBC 8.1 Th/cmm (4.8-10.8) 07/23/18 21:34 RBC 4.08 Mil/cmm (3.80-5.20) 07/23/18 21:34 Hgb 11.8 gm/dL (12-16) L 07/23/18 21:34 Hct 34.7 % (41.0-60) L 07/23/18 21:34 MCV 85.2 fl (81-100) 07/23/18 21:34 MCH 28.9 pg (27.0-31.0) 07/23/18 21:34 MCHC Differential 34.0 pg (28.0-36.0) 07/23/18 21:34 RDW 12.4 % (11.5-20.0) 07/23/18 21:34 Plt Count 279 Th/cmm (150-400) 07/23/18 21:34 MPV 7.6 fl 07/23/18 21:34 Neutrophils % 63.5 % (40.0-80.0) 07/23/18 21:34 Lymphocytes % 22.8 % (20.0-50.0) 07/23/18 21:34 Monocytes % 10.5 % (2.0-10.0) H 07/23/18 21:34 Eosinophils % 3.0 % (0.0-5.0) 07/23/18 21:34 Basophils % 0.2 % (0.0-2.0) 07/23/18 21:34 Sodium 137 mEq/L (136-145) 07/23/18 21:34 Potassium 3.8 mEq/L (3.5-5.1) 07/23/18 21:34 Chloride 100 mEq/L (98-107) 07/23/18 21:34 Carbon Dioxide 28.6 mEq/L (21.0-31.0) 07/23/18 21:34 Anion Gap 12.2 (7.0-16.0) 07/23/18 21:34 BUN 21 mg/dL (7-25) 07/23/18 21:34 Creatinine 0.9 mg/dL (0.6-1.2) 07/23/18 21:34 Est GFR ( Amer) TNP 07/23/18 21:34 Est GFR (Non-Af Amer) TNP 07/23/18 21:34 BUN/Creatinine Ratio 23.3 07/23/18 21:34 Glucose 101 mg/dL (70-105) 07/23/18 21:34 Calcium 9.4 mg/dL (8.6-10.3) 07/23/18 21:34 Total Bilirubin 0.3 mg/dL (0.3-1.0) 07/23/18 21:34 AST 16 U/L (13-39) 07/23/18 21:34 ALT 11 U/L (7-52) 07/23/18 21:34 Alkaline Phosphatase 55 U/L (34-104) 07/23/18 21:34 Total Protein 6.6 gm/dL (6.0-8.3) 07/23/18 21:34 Albumin 4.0 gm/dL (3.7-5.3) 07/23/18 21:34 Globulin 2.6 gm/dL 07/23/18 21:34 Albumin/Globulin Ratio 1.5 (1.0-1.8) 07/23/18 21:34 Triglycerides 70 mg/dL (<150) 07/23/18 21:34 Cholesterol 144 mg/dL (<200) 07/23/18 21:34 LDL Cholesterol Direct 72 mg/dL (75-193) L 07/23/18 21:34 HDL Cholesterol 58 mg/dL (23-92) 07/23/18 21:34 TSH 3.71 uIU/ml (0.34-5.60) 07/23/18 21:34 - Physical Exam Vitals and I&O: Vital Signs Temp 97.7 F 07/30/18 14:00 Pulse 71 07/30/18 14:00 Resp 20 07/30/18 14:00 BP 115/67 07/30/18 14:00 Pulse Ox 96 07/30/18 14:00 Intake & Output 07/29/18 07/30/18 07/30/18 18:59 06:59 18:59 Intake Total 240 Balance 240 Intake: Oral 240 Other: # Voids 2 # Bowel Movements 0 Stool Characteristics Soft Active Medications: Current Medications Acetaminophen (Tylenol) 650 mg PO Q4HR PRN PRN Reason: Mild Pain / Temp above 100 Stop: 09/21/18 23:53 Last Admin: 07/26/18 17:25 Dose: 650 mg Al Hydrox/Mg Hydrox/Simethicone (Maalox) 5 ml PO Q4H PRN PRN Reason: GI DISTRESS Stop: 09/22/18 00:00 Docusate Sodium (Colace) 250 mg PO DAILY COUNTS [facility]CLUDE 234 BEDS AT [facility] Stop: 09/22/18 08:59 Last Admin: 07/30/18 09:05 Dose: 250 mg Donepezil HCl (Aricept) 10 mg PO HS COUNTS INCLUDE 234 BEDS AT THE [facility] Stop: 09/22/18 20:59 Last Admin: 07/29/18 20:29 Dose: 10 mg Lorazepam (Ativan) 0.5 mg PO Q4HR PRN; Protocol PRN Reason: Anxiety Stop: 08/22/18 23:53 Last Admin: 07/30/18 13:31 Dose: 0.5 mg Magnesium Hydroxide (Milk Of Magnesia) 30 ml PO HS PRN PRN Reason: Constipation Stop: 09/22/18 00:00 Memantine (Namenda) 5 mg PO BID COUNTS INCLUDE 234 BEDS AT [facility] Stop: 09/28/18 08:59 Last Admin: 07/30/18 09:27 Dose: 5 mg Olanzapine (Zyprexa) 5 mg PO HS COUNTS INCLUDE 234 BEDS AT THE [facility]; Protocol Stop: 09/22/18 20:59 Last Admin: 07/29/18 20:29 Dose: 5 mg Zolpidem Tartrate (Ambien) 5 mg PO [facility] Stop: 09/22/18 20:59 Last Admin: 07/29/18 20:29 Dose: 5 mg Physical Exam: 89 y/o female patient is very disoriented and confused. General: alert, other (very confused) HEENT: NC/AT, PERRLA Neck: Supple Lungs: CTAB Cardiovascular: Normal S1, Normal S2, without murmur Abdomen: soft, non-tender, non-distended Extremities: excoriation Neurological: no change Internal Medicine Assmt/Plan - Assessment Assessment: increase confusion increase agitation - Plan Plan: as per psych awaiting placement Nutritional Asmnt/Malnutr-PDOC - Dietary Evaluation Malnutrition Findings (Please click <Entered> for more info): Nutritional Asmnt/Malnutrition Start: 07/26/18 09: 22 Text: Status: Complete Freq: Protocol: Document 07/26/18 09:22 MMSINDHU (Rec: 07/26/18 09:30 [email or web address] DUNN- FNS1) Nutritional Asmnt/Malnutrition Patient General Information Nutritional Screening Moderate Risk Diagnosis Psychosis NOS Pertinent Medical Hx/Surgical Hx 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 Subjective Information Patient was admitted from SNF. Talking to MD at time of visit. Current Diet Order/ Nutrition Support Mechanical soft, no added sodium Patient / S.O Not Indicated Pertinent Medications maalox, colace, MOM Pertinent Labs WNL Nutritional Hx/Data Height 1.73 m Height (Calculated Centimeters) 172.7 Current Weight (lbs) 54.431 kg Weight (Calculated Kilograms) 54.4 Weight (Calculated Grams) 59022.1 [place] Body Weight 140 % [place] Body Weight 85 Body Mass Index (BMI) 18.2 Recent Weight Change No Weight Status Underweight GI Symptoms GI Symptoms None Last BM 07/25 x 1 Difficult in: None Food Allergies No Cultural/Ethnic/Quaker Belief none indicated Usual diet at home unknown Skin Integrity/Comment: Heraclio 14, intact Current %PO Good (75-100%) Estimated Nutritional Goals BEE in Kcals: Using Current wt Calories/Kcals/Kg CBW 54.4 kg 30-35 kcal/kg ( underweight) Kcals Calculated 0342-4971 kcal/day Protein: Using Current wt Protein g/k-1.2 gm/kg Protein Calculated 55-65 gm/day Fluid: ml 4609-5838 ml/day (1 ml/kcal) Nutritional Problem 1. Problem Problem Underweight Etiology related to possible poor intake prior to admission, age aeb Signs/Symptoms: BMI 18.2 Intervention/Recommendation Comments 1. Continue mechanical soft, no added sodium diet as tolerated by patient. 2. With PO intake 75-100% of meals, no need for supplements at this time. Continue to monitor intake and weight. Expected Outcomes/Goals Expected Outcomes/Goals Oral intake >75% of meals, weight stable or trend toward IBW, nutrition related labs WNL. F/U LR 08/02
[2018-07-31] MEDS: Multivitamin w/ Minerals Tab PO SCH (09:17)
--- NOTE | 2018-07-31 12:00 | Internal Medicine Prog Note ---
Internal Medicine Subjective - Subjective Service Date: 07/31/18 Patient is:: awake, agitated, confused, other (admitted for increased confusion and hallucinating ,not compliant ) Patient Complaints of:: other (Does not where she is, very disoriented.) Per staff patient has:: no adverse event, no episodes of fall, tolerating meds Internal Medicine Objective - Results Result Diagrams: 07/23/18 21:34 07/23/18 21:34 Recent Labs: Laboratory Last Values WBC 8.1 Th/cmm (4.8-10.8) 07/23/18 21:34 RBC 4.08 Mil/cmm (3.80-5.20) 07/23/18 21:34 Hgb 11.8 gm/dL (12-16) L 07/23/18 21:34 Hct 34.7 % (41.0-60) L 07/23/18 21:34 MCV 85.2 fl (81-100) 07/23/18 21:34 MCH 28.9 pg (27.0-31.0) 07/23/18 21:34 MCHC Differential 34.0 pg (28.0-36.0) 07/23/18 21:34 RDW 12.4 % (11.5-20.0) 07/23/18 21:34 Plt Count 279 Th/cmm (150-400) 07/23/18 21:34 MPV 7.6 fl 07/23/18 21:34 Neutrophils % 63.5 % (40.0-80.0) 07/23/18 21:34 Lymphocytes % 22.8 % (20.0-50.0) 07/23/18 21:34 Monocytes % 10.5 % (2.0-10.0) H 07/23/18 21:34 Eosinophils % 3.0 % (0.0-5.0) 07/23/18 21:34 Basophils % 0.2 % (0.0-2.0) 07/23/18 21:34 Sodium 137 mEq/L (136-145) 07/23/18 21:34 Potassium 3.8 mEq/L (3.5-5.1) 07/23/18 21:34 Chloride 100 mEq/L (98-107) 07/23/18 21:34 Carbon Dioxide 28.6 mEq/L (21.0-31.0) 07/23/18 21:34 Anion Gap 12.2 (7.0-16.0) 07/23/18 21:34 BUN 21 mg/dL (7-25) 07/23/18 21:34 Creatinine 0.9 mg/dL (0.6-1.2) 07/23/18 21:34 Est GFR ( Amer) TNP 07/23/18 21:34 Est GFR (Non-Af Amer) TNP 07/23/18 21:34 BUN/Creatinine Ratio 23.3 07/23/18 21:34 Glucose 101 mg/dL (70-105) 07/23/18 21:34 Calcium 9.4 mg/dL (8.6-10.3) 07/23/18 21:34 Total Bilirubin 0.3 mg/dL (0.3-1.0) 07/23/18 21:34 AST 16 U/L (13-39) 07/23/18 21:34 ALT 11 U/L (7-52) 07/23/18 21:34 Alkaline Phosphatase 55 U/L (34-104) 07/23/18 21:34 Total Protein 6.6 gm/dL (6.0-8.3) 07/23/18 21:34 Albumin 4.0 gm/dL (3.7-5.3) 07/23/18 21:34 Globulin 2.6 gm/dL 07/23/18 21:34 Albumin/Globulin Ratio 1.5 (1.0-1.8) 07/23/18 21:34 Triglycerides 70 mg/dL (<150) 07/23/18 21:34 Cholesterol 144 mg/dL (<200) 07/23/18 21:34 LDL Cholesterol Direct 72 mg/dL (75-193) L 07/23/18 21:34 HDL Cholesterol 58 mg/dL (23-92) 07/23/18 21:34 TSH 3.71 uIU/ml (0.34-5.60) 07/23/18 21:34 - Physical Exam Vitals and I&O: Vital Signs Temp 97.1 F 07/31/18 06:35 Pulse 69 07/31/18 06:35 Resp 18 07/31/18 06:35 BP 119/69 07/31/18 06:35 Pulse Ox 97 07/31/18 06:35 Intake & Output 07/30/18 07/31/18 07/31/18 18:59 06:59 18:59 Intake Total 1200 200 Balance 1200 200 Intake: Oral 1200 200 Other: # Voids 1 # Bowel Movements 3 Active Medications: Current Medications Acetaminophen (Tylenol) 650 mg PO Q4HR PRN PRN Reason: Mild Pain / Temp above 100 Stop: 09/21/18 23:53 Last Admin: 07/26/18 17:25 Dose: 650 mg Al Hydrox/Mg Hydrox/Simethicone (Maalox) 5 ml PO Q4H PRN PRN Reason: GI DISTRESS Stop: 09/22/18 00:00 Docusate Sodium (Colace) 250 mg PO DAILY [facility] Stop: 09/22/18 08:59 Last Admin: 07/31/18 09:17 Dose: 250 mg Donepezil HCl (Aricept) 10 mg PO HS [facility] Stop: 09/22/18 20:59 Last Admin: 07/30/18 20:59 Dose: 10 mg Lorazepam (Ativan) 0.5 mg PO Q4HR PRN; Protocol PRN Reason: Anxiety Stop: 08/22/18 23:53 Last Admin: 07/31/18 03:43 Dose: 0.5 mg Magnesium Hydroxide (Milk Of Magnesia) 30 ml PO HS PRN PRN Reason: Constipation Stop: 09/22/18 00:00 Memantine (Namenda) 5 mg PO BID [facility] Stop: 09/28/18 08:59 Last Admin: 07/31/18 09:17 Dose: 5 mg Olanzapine (Zyprexa) 5 mg PO HS [facility]; Protocol Stop: 09/22/18 20:59 Last Admin: 07/30/18 20:58 Dose: 5 mg Zolpidem Tartrate (Ambien) 5 mg PO HS [facility] Stop: 09/22/18 20:59 Last Admin: 07/30/18 20:59 Dose: 5 mg General: alert, other (very confused) HEENT: NC/AT, PERRLA Neck: Supple Lungs: CTAB Cardiovascular: Normal S1, Normal S2, without murmur Abdomen: soft, non-tender, non-distended Extremities: excoriation Neurological: no change Internal Medicine Assmt/Plan - Assessment Assessment: dementia psychosis - Plan Plan: fall precautions cpm Nutritional Asmnt/Malnutr-PDOC - Dietary Evaluation Malnutrition Findings (Please click <Entered> for more info): Nutritional Asmnt/Malnutrition Start: 07/26/18 09: 22 Text: Status: Complete Freq: Protocol: Document 07/26/18 09:22 JENIFFER (Rec: 07/26/18 09:30 [email or web address] DUNN- FNS1) Nutritional Asmnt/Malnutrition Patient General Information Nutritional Screening Moderate Risk Diagnosis Psychosis NOS Pertinent Medical Hx/Surgical Hx 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 Subjective Information Patient was admitted from SNF. Talking to MD at time of visit. Current Diet Order/ Nutrition Support Mechanical soft, no added sodium Patient / S.O Not Indicated Pertinent Medications maalox, colace, MOM Pertinent Labs WNL Nutritional Hx/Data Height 5 ft 8 in Height (Calculated Centimeters) 172.7 Current Weight (lbs) 120 lb Weight (Calculated Kilograms) 54.4 Weight (Calculated Grams) 32594.1 [place] Body Weight 140 % [place] Body Weight 85 Body Mass Index (BMI) 18.2 Recent Weight Change No Weight Status Underweight GI Symptoms GI Symptoms None Last BM 07/25 x 1 Difficult in: None Food Allergies No Cultural/Ethnic/Zoroastrian Belief none indicated Usual diet at home unknown Skin Integrity/Comment: Heraclio 14, intact Current %PO Good (75-100%) Estimated Nutritional Goals BEE in Kcals: Using Current wt Calories/Kcals/Kg CBW 54.4 kg 30-35 kcal/kg ( underweight) Kcals Calculated 7524-4202 kcal/day Protein: Using Current wt Protein g/k-1.2 gm/kg Protein Calculated 55-65 gm/day Fluid: ml 7153-5280 ml/day (1 ml/kcal) Nutritional Problem 1. Problem Problem Underweight Etiology related to possible poor intake prior to admission, age aeb Signs/Symptoms: BMI 18.2 Intervention/Recommendation Comments 1. Continue mechanical soft, no added sodium diet as tolerated by patient. 2. With PO intake 75-100% of meals, no need for supplements at this time. Continue to monitor intake and weight. Expected Outcomes/Goals Expected Outcomes/Goals Oral intake >75% of meals, weight stable or trend toward IBW, nutrition related labs WNL. F/U LR 08/02
--- NOTE | 2018-07-31 14:00 | Progress Notes ---
DATE: 07/31/2018 Case was discussed with staff of the patient, reviewed records. Covering for Dr. Latif. The patient continues to be irritable, continues to be confused, demented. Dr. Latif increased her Namenda yesterday to 5 mg twice a day and also she is very disorganized, internally preoccupied. She is on Aricept 10 mg at bedtime, olanzapine 5 mg at bedtime. No side effects, no sedation, no nausea, no extrapyramidal symptoms. We will continue the patient in group therapy, milieu therapy, adjust medication as needed. JOB# [id number]
[2018-08-01] MEDS: Multivitamin w/ Minerals Tab PO SCH (09:37)
--- NOTE | 2018-08-01 12:00 | Internal Medicine Prog Note ---
Internal Medicine Subjective - Subjective Patient seen and examined:: chart reviewed (pt. confused, irritable ) Patient is:: awake, agitated, confused, other (admitted for increased confusion and hallucinating ,not compliant ) Patient Complaints of:: other (Does not where she is, very disoriented.) Per staff patient has:: no adverse event, no episodes of fall, tolerating meds Internal Medicine Objective - Results Result Diagrams: 07/23/18 21:34 07/23/18 21:34 Recent Labs: Laboratory Last Values WBC 8.1 Th/cmm (4.8-10.8) 07/23/18 21:34 RBC 4.08 Mil/cmm (3.80-5.20) 07/23/18 21:34 Hgb 11.8 gm/dL (12-16) L 07/23/18 21:34 Hct 34.7 % (41.0-60) L 07/23/18 21:34 MCV 85.2 fl (81-100) 07/23/18 21:34 MCH 28.9 pg (27.0-31.0) 07/23/18 21:34 MCHC Differential 34.0 pg (28.0-36.0) 07/23/18 21:34 RDW 12.4 % (11.5-20.0) 07/23/18 21:34 Plt Count 279 Th/cmm (150-400) 07/23/18 21:34 MPV 7.6 fl 07/23/18 21:34 Neutrophils % 63.5 % (40.0-80.0) 07/23/18 21:34 Lymphocytes % 22.8 % (20.0-50.0) 07/23/18 21:34 Monocytes % 10.5 % (2.0-10.0) H 07/23/18 21:34 Eosinophils % 3.0 % (0.0-5.0) 07/23/18 21:34 Basophils % 0.2 % (0.0-2.0) 07/23/18 21:34 Sodium 137 mEq/L (136-145) 07/23/18 21:34 Potassium 3.8 mEq/L (3.5-5.1) 07/23/18 21:34 Chloride 100 mEq/L (98-107) 07/23/18 21:34 Carbon Dioxide 28.6 mEq/L (21.0-31.0) 07/23/18 21:34 Anion Gap 12.2 (7.0-16.0) 07/23/18 21:34 BUN 21 mg/dL (7-25) 07/23/18 21:34 Creatinine 0.9 mg/dL (0.6-1.2) 07/23/18 21:34 Est GFR ( Amer) TNP 07/23/18 21:34 Est GFR (Non-Af Amer) TNP 07/23/18 21:34 BUN/Creatinine Ratio 23.3 07/23/18 21:34 Glucose 101 mg/dL (70-105) 07/23/18 21:34 Calcium 9.4 mg/dL (8.6-10.3) 07/23/18 21:34 Total Bilirubin 0.3 mg/dL (0.3-1.0) 07/23/18 21:34 AST 16 U/L (13-39) 07/23/18 21:34 ALT 11 U/L (7-52) 07/23/18 21:34 Alkaline Phosphatase 55 U/L (34-104) 07/23/18 21:34 Total Protein 6.6 gm/dL (6.0-8.3) 07/23/18 21:34 Albumin 4.0 gm/dL (3.7-5.3) 07/23/18 21:34 Globulin 2.6 gm/dL 07/23/18 21:34 Albumin/Globulin Ratio 1.5 (1.0-1.8) 07/23/18 21:34 Triglycerides 70 mg/dL (<150) 07/23/18 21:34 Cholesterol 144 mg/dL (<200) 07/23/18 21:34 LDL Cholesterol Direct 72 mg/dL (75-193) L 07/23/18 21:34 HDL Cholesterol 58 mg/dL (23-92) 07/23/18 21:34 TSH 3.71 uIU/ml (0.34-5.60) 07/23/18 21:34 - Physical Exam Vitals and I&O: Vital Signs Temp 97.4 F 08/01/18 06:25 Pulse 75 08/01/18 06:25 Resp 18 08/01/18 06:25 BP 113/61 08/01/18 06:25 Pulse Ox 97 08/01/18 06:25 Intake & Output 07/31/18 08/01/18 08/01/18 18:59 06:59 18:59 Intake Total 960 120 Balance 960 120 Intake: Oral 960 120 Other: # Voids 3 3 # Bowel Movements 1 Active Medications: Current Medications Acetaminophen (Tylenol) 650 mg PO Q4HR PRN PRN Reason: Mild Pain / Temp above 100 Stop: 09/21/18 23:53 Last Admin: 07/26/18 17:25 Dose: 650 mg Al Hydrox/Mg Hydrox/Simethicone (Maalox) 5 ml PO Q4H PRN PRN Reason: GI DISTRESS Stop: 09/22/18 00:00 Docusate Sodium (Colace) 250 mg PO DAILY [facility] Stop: 09/22/18 08:59 Last Admin: 08/01/18 09:37 Dose: 250 mg Donepezil HCl (Aricept) 10 mg PO HS [facility] Stop: 09/22/18 20:59 Last Admin: 07/31/18 20:20 Dose: 10 mg Lorazepam (Ativan) 0.5 mg PO Q4HR PRN; Protocol PRN Reason: Anxiety Stop: 08/22/18 23:53 Last Admin: 07/31/18 03:43 Dose: 0.5 mg Magnesium Hydroxide (Milk Of Magnesia) 30 ml PO HS PRN PRN Reason: Constipation Stop: 09/22/18 00:00 Memantine (Namenda) 5 mg PO BID [facility] Stop: 09/28/18 08:59 Last Admin: 08/01/18 09:37 Dose: 5 mg Olanzapine (Zyprexa) 5 mg PO HS [facility]; Protocol Stop: 09/22/18 20:59 Last Admin: 07/31/18 20:20 Dose: 5 mg Zolpidem Tartrate (Ambien) 5 mg PO HS [facility] Stop: 09/22/18 20:59 Last Admin: 07/31/18 20:20 Dose: 5 mg Physical Exam: 89 y/o female patient is very disoriented and confused. General: alert, other (very confused) HEENT: NC/AT, PERRLA Neck: Supple Lungs: CTAB Cardiovascular: Normal S1, Normal S2, without murmur Abdomen: soft, non-tender, non-distended Extremities: excoriation Neurological: no change (demented) Internal Medicine Assmt/Plan - Assessment Assessment: increase confusion increase agitation - Plan Plan: as per psych awaiting placement Nutritional Asmnt/Malnutr-PDOC - Dietary Evaluation Malnutrition Findings (Please click <Entered> for more info): Nutritional Asmnt/Malnutrition Start: 07/26/18 09: 22 Text: Status: Complete Freq: Protocol: Document 07/26/18 09:22 MMULHAWA (Rec: 07/26/18 09:30 MMULHERSidney SHAUN- FNS1) Nutritional Asmnt/Malnutrition Patient General Information Nutritional Screening Moderate Risk Diagnosis Psychosis NOS Pertinent Medical Hx/Surgical Hx 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 Subjective Information Patient was admitted from SNF. Talking to MD at time of visit. Current Diet Order/ Nutrition Support Mechanical soft, no added sodium Patient / S.O Not Indicated Pertinent Medications maalox, colace, MOM Pertinent Labs WNL Nutritional Hx/Data Height 1.73 m Height (Calculated Centimeters) 172.7 Current Weight (lbs) 54.431 kg Weight (Calculated Kilograms) 54.4 Weight (Calculated Grams) 20155.1 [place] Body Weight 140 % [place] Body Weight 85 Body Mass Index (BMI) 18.2 Recent Weight Change No Weight Status Underweight GI Symptoms GI Symptoms None Last BM 07/25 x 1 Difficult in: None Food Allergies No Cultural/Ethnic/Nondenominational Belief none indicated Usual diet at home unknown Skin Integrity/Comment: Heraclio 14, intact Current %PO Good (75-100%) Estimated Nutritional Goals BEE in Kcals: Using Current wt Calories/Kcals/Kg CBW 54.4 kg 30-35 kcal/kg ( underweight) Kcals Calculated 2513-7144 kcal/day Protein: Using Current wt Protein g/k-1.2 gm/kg Protein Calculated 55-65 gm/day Fluid: ml 7209-3422 ml/day (1 ml/kcal) Nutritional Problem 1. Problem Problem Underweight Etiology related to possible poor intake prior to admission, age aeb Signs/Symptoms: BMI 18.2 Intervention/Recommendation Comments 1. Continue mechanical soft, no added sodium diet as tolerated by patient. 2. With PO intake 75-100% of meals, no need for supplements at this time. Continue to monitor intake and weight. Expected Outcomes/Goals Expected Outcomes/Goals Oral intake >75% of meals, weight stable or trend toward IBW, nutrition related labs WNL. F/U LR 08/02
--- NOTE | 2018-08-02 02:30 | Progress Notes ---
DATE: 08/01/2018 Case was discussed with staff of the patient, reviewed records. The patient continues to be confused, demented. Continues to be unpredictable, impulsive, unable to make safe plan for self-care or participate in a meaningful conversation. Staff is working on placement for this patient. No side effects of the medication, no sedation, no nausea, no extrapyramidal symptoms. We will continue to work with the patient in group therapy, milieu therapy, adjust medications as needed. JOB# [id number]
[2018-08-02] MEDS: Multivitamin w/ Minerals Tab PO SCH (08:47)
--- NOTE | 2018-08-02 09:47 | Progress Notes ---
DATE: 07/30/2018 DATE: 07/30/2018. SUBJECTIVE: Chart reviewed and the patient interviewed. Also discussed the patient's condition with the staff and reviewed records and labs. The patient still seems to be confused and still has disorganized speech. The patient is unable to answer questions appropriately and he is unable to express his needs. The patient also is still forgetful and still needs a lots of redirections. Otherwise, the patient continued to comply with taking his medications with no side effects. ASSESSMENT: The patient is still confused and still needs close monitoring. TREATMENT PLAN: We will increase Namenda to 5 mg twice a day and continue Zyprexa 5 mg at bedtime, Aricept to 10 mg at bedtime and Ativan on a p.r.n. basis and continue to follow up closely. JOB# [id number]
--- NOTE | 2018-08-02 18:39 | Progress Notes ---
DATE: 08/02/2018 SUBJECTIVE: An 83-year-old female, very confused, disoriented, coming in because of poor food intake, hallucinations, disorganized. On [id number], the patient remains confused, highly disengaged. I tried to talk to her, but she is too confused, unable to have any sort of meaningful conversation. Staff noting she needs high level of prompting and redirection. Slept for about 8 hours, has been generally quite over the past 24 hours. AO to essentially name only, sometimes mumbling to self. Medication were noted. PLAN: We will continue to monitor. Continue low dose Zyprexa. Monitor on an inpatient basis. JOB# [id number]
[2018-08-03] MEDS: Multivitamin w/ Minerals Tab PO SCH (09:27)
--- NOTE | 2018-08-03 10:24 | Internal Medicine Prog Note ---
Internal Medicine Subjective - Subjective Patient seen and examined:: chart reviewed Patient is:: awake, confused, other (still very confused in no distress ) Patient Complaints of:: other (Does not where she is, very disoriented.) Per staff patient has:: no adverse event, no episodes of fall, tolerating meds Internal Medicine Objective - Results Result Diagrams: 07/23/18 21:34 07/23/18 21:34 Recent Labs: Laboratory Last Values WBC 8.1 Th/cmm (4.8-10.8) 07/23/18 21:34 RBC 4.08 Mil/cmm (3.80-5.20) 07/23/18 21:34 Hgb 11.8 gm/dL (12-16) L 07/23/18 21:34 Hct 34.7 % (41.0-60) L 07/23/18 21:34 MCV 85.2 fl (81-100) 07/23/18 21:34 MCH 28.9 pg (27.0-31.0) 07/23/18 21:34 MCHC Differential 34.0 pg (28.0-36.0) 07/23/18 21:34 RDW 12.4 % (11.5-20.0) 07/23/18 21:34 Plt Count 279 Th/cmm (150-400) 07/23/18 21:34 MPV 7.6 fl 07/23/18 21:34 Neutrophils % 63.5 % (40.0-80.0) 07/23/18 21:34 Lymphocytes % 22.8 % (20.0-50.0) 07/23/18 21:34 Monocytes % 10.5 % (2.0-10.0) H 07/23/18 21:34 Eosinophils % 3.0 % (0.0-5.0) 07/23/18 21:34 Basophils % 0.2 % (0.0-2.0) 07/23/18 21:34 Sodium 137 mEq/L (136-145) 07/23/18 21:34 Potassium 3.8 mEq/L (3.5-5.1) 07/23/18 21:34 Chloride 100 mEq/L (98-107) 07/23/18 21:34 Carbon Dioxide 28.6 mEq/L (21.0-31.0) 07/23/18 21:34 Anion Gap 12.2 (7.0-16.0) 07/23/18 21:34 BUN 21 mg/dL (7-25) 07/23/18 21:34 Creatinine 0.9 mg/dL (0.6-1.2) 07/23/18 21:34 Est GFR ( Amer) TNP 07/23/18 21:34 Est GFR (Non-Af Amer) TNP 07/23/18 21:34 BUN/Creatinine Ratio 23.3 07/23/18 21:34 Glucose 101 mg/dL (70-105) 07/23/18 21:34 Calcium 9.4 mg/dL (8.6-10.3) 07/23/18 21:34 Total Bilirubin 0.3 mg/dL (0.3-1.0) 07/23/18 21:34 AST 16 U/L (13-39) 07/23/18 21:34 ALT 11 U/L (7-52) 07/23/18 21:34 Alkaline Phosphatase 55 U/L (34-104) 07/23/18 21:34 Total Protein 6.6 gm/dL (6.0-8.3) 07/23/18 21:34 Albumin 4.0 gm/dL (3.7-5.3) 07/23/18 21:34 Globulin 2.6 gm/dL 07/23/18 21:34 Albumin/Globulin Ratio 1.5 (1.0-1.8) 07/23/18 21:34 Triglycerides 70 mg/dL (<150) 07/23/18 21:34 Cholesterol 144 mg/dL (<200) 07/23/18 21:34 LDL Cholesterol Direct 72 mg/dL (75-193) L 07/23/18 21:34 HDL Cholesterol 58 mg/dL (23-92) 07/23/18 21:34 TSH 3.71 uIU/ml (0.34-5.60) 07/23/18 21:34 - Physical Exam Vitals and I&O: Vital Signs Temp 98.7 F 08/03/18 06:16 Pulse 62 08/03/18 06:16 Resp 20 08/03/18 06:16 BP 135/59 08/03/18 06:16 Pulse Ox 98 08/03/18 06:16 Intake & Output 08/02/18 08/03/18 08/03/18 18:59 06:59 18:59 Intake Total 1200 120 Balance 1200 120 Intake: Oral 1200 120 Other: # Voids 2 2 # Bowel Movements 0 0 Active Medications: Current Medications Acetaminophen (Tylenol) 650 mg PO Q4HR PRN PRN Reason: Mild Pain / Temp above 100 Stop: 09/21/18 23:53 Last Admin: 07/26/18 17:25 Dose: 650 mg Al Hydrox/Mg Hydrox/Simethicone (Maalox) 5 ml PO Q4H PRN PRN Reason: GI DISTRESS Stop: 09/22/18 00:00 Docusate Sodium (Colace) 250 mg PO DAILY [facility] Stop: 09/22/18 08:59 Last Admin: 08/03/18 09:27 Dose: 250 mg Donepezil HCl (Aricept) 10 mg PO HS [facility] Stop: 09/22/18 20:59 Last Admin: 08/02/18 20:30 Dose: 10 mg Lorazepam (Ativan) 0.5 mg PO Q4HR PRN; Protocol PRN Reason: Anxiety Stop: 08/22/18 23:53 Last Admin: 08/02/18 17:09 Dose: 0.5 mg Magnesium Hydroxide (Milk Of Magnesia) 30 ml PO HS PRN PRN Reason: Constipation Stop: 09/22/18 00:00 Memantine (Namenda) 5 mg PO BID [facility] Stop: 09/28/18 08:59 Last Admin: 08/03/18 09:27 Dose: 5 mg Olanzapine (Zyprexa) 5 mg PO HS [facility]; Protocol Stop: 09/22/18 20:59 Last Admin: 08/02/18 20:30 Dose: 5 mg Zolpidem Tartrate (Ambien) 5 mg PO HS [facility] Stop: 09/22/18 20:59 Last Admin: 08/02/18 20:30 Dose: 5 mg Physical Exam: 89 y/o female patient is very disoriented and confused. General: alert, other (very confused) HEENT: NC/AT, PERRLA Neck: Supple Lungs: CTAB Cardiovascular: Normal S1, Normal S2, without murmur Abdomen: soft, non-tender, non-distended Extremities: excoriation Neurological: no change (demented) Internal Medicine Assmt/Plan - Assessment Assessment: increase confusion increase agitation - Plan Plan: as per psych awaiting placement Nutritional Asmnt/Malnutr-PDOC - Dietary Evaluation Malnutrition Findings (Please click <Entered> for more info): Nutritional Asmnt/Malnutrition Start: 07/26/18 09: 22 Text: Status: Complete Freq: Protocol: Document 07/26/18 09:22 JENIFFER (Rec: 07/26/18 09:30 [email or web address] SHAUN- [email or web address]) Nutritional Asmnt/Malnutrition Patient General Information Nutritional Screening Moderate Risk Diagnosis Psychosis NOS Pertinent Medical Hx/Surgical Hx 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 Subjective Information Patient was admitted from SNF. Talking to MD at time of visit. Current Diet Order/ Nutrition Support Mechanical soft, no added sodium Patient / S.O Not Indicated Pertinent Medications maalox, colace, MOM Pertinent Labs WNL Nutritional Hx/Data Height 1.73 m Height (Calculated Centimeters) 172.7 Current Weight (lbs) 54.431 kg Weight (Calculated Kilograms) 54.4 Weight (Calculated Grams) 71512.1 [place] Body Weight 140 % [place] Body Weight 85 Body Mass Index (BMI) 18.2 Recent Weight Change No Weight Status Underweight GI Symptoms GI Symptoms None Last BM 07/25 x 1 Difficult in: None Food Allergies No Cultural/Ethnic/Restoration Belief none indicated Usual diet at home unknown Skin Integrity/Comment: Heraclio 14, intact Current %PO Good (75-100%) Estimated Nutritional Goals BEE in Kcals: Using Current wt Calories/Kcals/Kg CBW 54.4 kg 30-35 kcal/kg ( underweight) Kcals Calculated 9537-5417 kcal/day Protein: Using Current wt Protein g/k-1.2 gm/kg Protein Calculated 55-65 gm/day Fluid: ml 0625-1728 ml/day (1 ml/kcal) Nutritional Problem 1. Problem Problem Underweight Etiology related to possible poor intake prior to admission, age aeb Signs/Symptoms: BMI 18.2 Intervention/Recommendation Comments 1. Continue mechanical soft, no added sodium diet as tolerated by patient. 2. With PO intake 75-100% of meals, no need for supplements at this time. Continue to monitor intake and weight. Expected Outcomes/Goals Expected Outcomes/Goals Oral intake >75% of meals, weight stable or trend toward IBW, nutrition related labs WNL. F/U LR 08/02
--- NOTE | 2018-08-03 20:24 | Progress Notes ---
DATE: 08/03/2018 SUBJECTIVE: The patient seen today on 08/03/2018, slept fairly well, very confused on exam. When I tried talking to patient, she is only able to tell me name, unable to have any reasonable conversation with the patient, disorganized thoughts, still ongoing bizarre notions, saying some things that I cannot really understand, speaking nonsensically, sometimes screaming and yelling, sometimes with outbursts. The patient remains impulsive, unpredictable, ongoing concerns. ASSESSMENT: The patient remains confused, disoriented, ongoing outbursts. We will continue to monitor. Medications were noted. Continue to monitor on an inpatient basis. JOB# [id number]
[2018-08-04] MEDS: Multivitamin w/ Minerals Tab PO SCH (08:43)
--- NOTE | 2018-08-04 10:31 | Internal Medicine Prog Note ---
Internal Medicine Subjective - Subjective Service Date: 07/15/18 Patient seen and examined:: with staff Patient is:: awake, confused, other ( in no distress ) Patient Complaints of:: other (Does not where she is, very disoriented.) Per staff patient has:: no adverse event, no episodes of fall, tolerating meds Internal Medicine Objective - Results Result Diagrams: 07/23/18 21:34 07/23/18 21:34 Recent Labs: Laboratory Last Values WBC 8.1 Th/cmm (4.8-10.8) 07/23/18 21:34 RBC 4.08 Mil/cmm (3.80-5.20) 07/23/18 21:34 Hgb 11.8 gm/dL (12-16) L 07/23/18 21:34 Hct 34.7 % (41.0-60) L 07/23/18 21:34 MCV 85.2 fl (81-100) 07/23/18 21:34 MCH 28.9 pg (27.0-31.0) 07/23/18 21:34 MCHC Differential 34.0 pg (28.0-36.0) 07/23/18 21:34 RDW 12.4 % (11.5-20.0) 07/23/18 21:34 Plt Count 279 Th/cmm (150-400) 07/23/18 21:34 MPV 7.6 fl 07/23/18 21:34 Neutrophils % 63.5 % (40.0-80.0) 07/23/18 21:34 Lymphocytes % 22.8 % (20.0-50.0) 07/23/18 21:34 Monocytes % 10.5 % (2.0-10.0) H 07/23/18 21:34 Eosinophils % 3.0 % (0.0-5.0) 07/23/18 21:34 Basophils % 0.2 % (0.0-2.0) 07/23/18 21:34 Sodium 137 mEq/L (136-145) 07/23/18 21:34 Potassium 3.8 mEq/L (3.5-5.1) 07/23/18 21:34 Chloride 100 mEq/L (98-107) 07/23/18 21:34 Carbon Dioxide 28.6 mEq/L (21.0-31.0) 07/23/18 21:34 Anion Gap 12.2 (7.0-16.0) 07/23/18 21:34 BUN 21 mg/dL (7-25) 07/23/18 21:34 Creatinine 0.9 mg/dL (0.6-1.2) 07/23/18 21:34 Est GFR ( Amer) TNP 07/23/18 21:34 Est GFR (Non-Af Amer) TNP 07/23/18 21:34 BUN/Creatinine Ratio 23.3 07/23/18 21:34 Glucose 101 mg/dL (70-105) 07/23/18 21:34 Calcium 9.4 mg/dL (8.6-10.3) 07/23/18 21:34 Total Bilirubin 0.3 mg/dL (0.3-1.0) 07/23/18 21:34 AST 16 U/L (13-39) 07/23/18 21:34 ALT 11 U/L (7-52) 07/23/18 21:34 Alkaline Phosphatase 55 U/L (34-104) 07/23/18 21:34 Total Protein 6.6 gm/dL (6.0-8.3) 07/23/18 21:34 Albumin 4.0 gm/dL (3.7-5.3) 07/23/18 21:34 Globulin 2.6 gm/dL 07/23/18 21:34 Albumin/Globulin Ratio 1.5 (1.0-1.8) 07/23/18 21:34 Triglycerides 70 mg/dL (<150) 07/23/18 21:34 Cholesterol 144 mg/dL (<200) 07/23/18 21:34 LDL Cholesterol Direct 72 mg/dL (75-193) L 07/23/18 21:34 HDL Cholesterol 58 mg/dL (23-92) 07/23/18 21:34 TSH 3.71 uIU/ml (0.34-5.60) 07/23/18 21:34 - Physical Exam Vitals and I&O: Vital Signs Temp 98.9 F 08/04/18 05:27 Pulse 60 08/04/18 05:27 Resp 18 08/04/18 05:27 BP 119/61 08/04/18 05:27 Pulse Ox 95 08/04/18 05:27 Intake & Output 08/03/18 08/04/18 08/04/18 18:59 06:59 18:59 Intake Total 240 Output Total 1 Balance 239 Intake: Oral 240 Output: Urine/Stool Mix 1 Other: # Voids 1 # Bowel Movements 1 Active Medications: Current Medications Acetaminophen (Tylenol) 650 mg PO Q4HR PRN PRN Reason: Mild Pain / Temp above 100 Stop: 09/21/18 23:53 Last Admin: 07/26/18 17:25 Dose: 650 mg Al Hydrox/Mg Hydrox/Simethicone (Maalox) 5 ml PO Q4H PRN PRN Reason: GI DISTRESS Stop: 09/22/18 00:00 Docusate Sodium (Colace) 250 mg PO DAILY [facility] Stop: 09/22/18 08:59 Last Admin: 08/04/18 08:43 Dose: 250 mg Donepezil HCl (Aricept) 10 mg PO HS [facility] Stop: 09/22/18 20:59 Last Admin: 08/03/18 21:12 Dose: 10 mg Lorazepam (Ativan) 0.5 mg PO Q4HR PRN; Protocol PRN Reason: Anxiety Stop: 08/22/18 23:53 Last Admin: 08/02/18 17:09 Dose: 0.5 mg Magnesium Hydroxide (Milk Of Magnesia) 30 ml PO HS PRN PRN Reason: Constipation Stop: 09/22/18 00:00 Memantine (Namenda) 5 mg PO BID [facility] Stop: 09/28/18 08:59 Last Admin: 08/04/18 08:43 Dose: 5 mg Olanzapine (Zyprexa) 5 mg PO HS [facility]; Protocol Stop: 09/22/18 20:59 Last Admin: 08/03/18 21:12 Dose: 5 mg Zolpidem Tartrate (Ambien) 5 mg PO [facility] Stop: 09/22/18 20:59 Last Admin: 08/03/18 21:12 Dose: 5 mg Physical Exam: 83 y/o female patient remains very disoriented and is still confused. General: alert, other (very confused) HEENT: NC/AT, PERRLA Neck: Supple Lungs: CTAB Cardiovascular: Normal S1, Normal S2, without murmur Abdomen: soft, non-tender, non-distended Extremities: excoriation Neurological: no change (demented), disorganized, unable to follow command Internal Medicine Assmt/Plan - Assessment Assessment: increased confusion increased agitation - Plan Plan: as per psych fall precaution safety precaution awaiting placement Nutritional Asmnt/Malnutr-PDOC - Dietary Evaluation Malnutrition Findings (Please click <Entered> for more info): Nutritional Asmnt/Malnutrition Start: 07/26/18 09: 22 Text: Status: Complete Freq: Protocol: Document 07/26/18 09:22 JENIFFER (Rec: 07/26/18 09:30 MMULHAWA DUNN- FN) Nutritional Asmnt/Malnutrition Patient General Information Nutritional Screening Moderate Risk Diagnosis Psychosis NOS Pertinent Medical Hx/Surgical Hx 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 Subjective Information Patient was admitted from SNF. Talking to MD at time of visit. Current Diet Order/ Nutrition Support Mechanical soft, no added sodium Patient / S.O Not Indicated Pertinent Medications maalox, colace, MOM Pertinent Labs WNL Nutritional Hx/Data Height 1.73 m Height (Calculated Centimeters) 172.7 Current Weight (lbs) 54.431 kg Weight (Calculated Kilograms) 54.4 Weight (Calculated Grams) 92002.1 [place] Body Weight 140 % [place] Body Weight 85 Body Mass Index (BMI) 18.2 Recent Weight Change No Weight Status Underweight GI Symptoms GI Symptoms None Last BM 07/25 x 1 Difficult in: None Food Allergies No Cultural/Ethnic/Faith Belief none indicated Usual diet at home unknown Skin Integrity/Comment: Heraclio 14, intact Current %PO Good (75-100%) Estimated Nutritional Goals BEE in Kcals: Using Current wt Calories/Kcals/Kg CBW 54.4 kg 30-35 kcal/kg ( underweight) Kcals Calculated 8795-2926 kcal/day Protein: Using Current wt Protein g/k-1.2 gm/kg Protein Calculated 55-65 gm/day Fluid: ml 5389-1656 ml/day (1 ml/kcal) Nutritional Problem 1. Problem Problem Underweight Etiology related to possible poor intake prior to admission, age aeb Signs/Symptoms: BMI 18.2 Intervention/Recommendation Comments 1. Continue mechanical soft, no added sodium diet as tolerated by patient. 2. With PO intake 75-100% of meals, no need for supplements at this time. Continue to monitor intake and weight. Expected Outcomes/Goals Expected Outcomes/Goals Oral intake >75% of meals, weight stable or trend toward IBW, nutrition related labs WNL. F/U LR 08/02
--- NOTE | 2018-08-04 23:26 | Progress Notes ---
DATE: 08/04/[address] Latif. Case was discussed with the staff of the patient, reviewed records. The patient continues to be confused, unable to provide meaningful conversation. She is disorganized, ongoing bizarre behavior, unable to express herself. She continues to be confused, disoriented, impulsive, unpredictable with some anger outbursts. No side effects to the medication, no sedation, no nausea and no extrapyramidal symptoms. She is on Aricept 10 mg at bedtime, Namenda 5 mg twice a day, olanzapine 5 mg at bedtime. I am increasing her olanzapine to 7.5 mg at bedtime. No side effects with the medication, no sedation, no nausea, no extrapyramidal symptoms. I will continue to work with the patient in group therapy, milieu therapy, and adjust the medication as needed. JOB# [id number]
[2018-08-05] MEDS: Multivitamin w/ Minerals Tab PO SCH (08:47)
--- NOTE | 2018-08-05 13:31 | Internal Medicine Prog Note ---
Internal Medicine Subjective - Subjective Service Date: 08/05/18 Patient is:: awake, confused, other ( in no distress ) Patient Complaints of:: other (Does not where she is, very disoriented.) Per staff patient has:: no adverse event, no episodes of fall, tolerating meds Internal Medicine Objective - Results Result Diagrams: 07/23/18 21:34 07/23/18 21:34 Recent Labs: Laboratory Last Values WBC 8.1 Th/cmm (4.8-10.8) 07/23/18 21:34 RBC 4.08 Mil/cmm (3.80-5.20) 07/23/18 21:34 Hgb 11.8 gm/dL (12-16) L 07/23/18 21:34 Hct 34.7 % (41.0-60) L 07/23/18 21:34 MCV 85.2 fl (81-100) 07/23/18 21:34 MCH 28.9 pg (27.0-31.0) 07/23/18 21:34 MCHC Differential 34.0 pg (28.0-36.0) 07/23/18 21:34 RDW 12.4 % (11.5-20.0) 07/23/18 21:34 Plt Count 279 Th/cmm (150-400) 07/23/18 21:34 MPV 7.6 fl 07/23/18 21:34 Neutrophils % 63.5 % (40.0-80.0) 07/23/18 21:34 Lymphocytes % 22.8 % (20.0-50.0) 07/23/18 21:34 Monocytes % 10.5 % (2.0-10.0) H 07/23/18 21:34 Eosinophils % 3.0 % (0.0-5.0) 07/23/18 21:34 Basophils % 0.2 % (0.0-2.0) 07/23/18 21:34 Sodium 137 mEq/L (136-145) 07/23/18 21:34 Potassium 3.8 mEq/L (3.5-5.1) 07/23/18 21:34 Chloride 100 mEq/L (98-107) 07/23/18 21:34 Carbon Dioxide 28.6 mEq/L (21.0-31.0) 07/23/18 21:34 Anion Gap 12.2 (7.0-16.0) 07/23/18 21:34 BUN 21 mg/dL (7-25) 07/23/18 21:34 Creatinine 0.9 mg/dL (0.6-1.2) 07/23/18 21:34 Est GFR ( Amer) TNP 07/23/18 21:34 Est GFR (Non-Af Amer) TNP 07/23/18 21:34 BUN/Creatinine Ratio 23.3 07/23/18 21:34 Glucose 101 mg/dL (70-105) 07/23/18 21:34 Calcium 9.4 mg/dL (8.6-10.3) 07/23/18 21:34 Total Bilirubin 0.3 mg/dL (0.3-1.0) 07/23/18 21:34 AST 16 U/L (13-39) 07/23/18 21:34 ALT 11 U/L (7-52) 07/23/18 21:34 Alkaline Phosphatase 55 U/L (34-104) 07/23/18 21:34 Total Protein 6.6 gm/dL (6.0-8.3) 07/23/18 21:34 Albumin 4.0 gm/dL (3.7-5.3) 07/23/18 21:34 Globulin 2.6 gm/dL 07/23/18 21:34 Albumin/Globulin Ratio 1.5 (1.0-1.8) 07/23/18 21:34 Triglycerides 70 mg/dL (<150) 07/23/18 21:34 Cholesterol 144 mg/dL (<200) 07/23/18 21:34 LDL Cholesterol Direct 72 mg/dL (75-193) L 07/23/18 21:34 HDL Cholesterol 58 mg/dL (23-92) 07/23/18 21:34 TSH 3.71 uIU/ml (0.34-5.60) 07/23/18 21:34 - Physical Exam Vitals and I&O: Vital Signs Temp 98.8 F 08/05/18 05:59 Pulse 78 08/05/18 05:59 Resp 19 08/05/18 05:59 BP 116/77 08/05/18 05:59 Pulse Ox 98 08/05/18 05:59 Intake & Output 08/04/18 08/05/18 08/05/18 18:59 06:59 18:59 Intake Total 240 Balance 240 Weight (lbs) 120 lb Intake: Oral 240 Other: # Voids 3 # Bowel Movements 0 Weight Source Bedscale Active Medications: Current Medications Acetaminophen (Tylenol) 650 mg PO Q4HR PRN PRN Reason: Mild Pain / Temp above 100 Stop: 09/21/18 23:53 Last Admin: 07/26/18 17:25 Dose: 650 mg Al Hydrox/Mg Hydrox/Simethicone (Maalox) 5 ml PO Q4H PRN PRN Reason: GI DISTRESS Stop: 09/22/18 00:00 Docusate Sodium (Colace) 250 mg PO DAILY [facility] Stop: 09/22/18 08:59 Last Admin: 08/05/18 08:47 Dose: 250 mg Donepezil HCl (Aricept) 10 mg PO HS [facility] Stop: 09/22/18 20:59 Last Admin: 08/04/18 20:47 Dose: 10 mg Lorazepam (Ativan) 0.5 mg PO Q4HR PRN; Protocol PRN Reason: Anxiety Stop: 08/22/18 23:53 Last Admin: 08/02/18 17:09 Dose: 0.5 mg Magnesium Hydroxide (Milk Of Magnesia) 30 ml PO HS PRN PRN Reason: Constipation Stop: 09/22/18 00:00 Memantine (Namenda) 5 mg PO BID [facility] Stop: 09/28/18 08:59 Last Admin: 08/05/18 08:47 Dose: 5 mg Olanzapine 5 mg/ Olanzapine 2. (5 mg) 7.[address] [facility] Stop: 10/03/18 20:59 Last Admin: 08/04/18 20:47 Dose: 7.5 mg Zolpidem Tartrate (Ambien) 5 mg PO HS [facility] Stop: 09/22/18 20:59 Last Admin: 08/04/18 20:47 Dose: 5 mg General: alert, other (very confused) HEENT: NC/AT, PERRLA Neck: Supple Lungs: CTAB Cardiovascular: Normal S1, Normal S2, without murmur Abdomen: soft, non-tender, non-distended Extremities: excoriation Neurological: no change (demented), disorganized, unable to follow command Internal Medicine Assmt/Plan - Assessment Assessment: dementia psychosis - Plan Plan: fall precautions cpm Nutritional Asmnt/Malnutr-PDOC - Dietary Evaluation Malnutrition Findings (Please click <Entered> for more info): Nutritional Asmnt/Malnutrition Start: 07/26/18 09: 22 Text: Status: Complete Freq: Protocol: Document 07/26/18 09:22 [email or web address] (Rec: 07/26/18 09:30 MMULHAWA SHAUN- FNS1) Nutritional Asmnt/Malnutrition Patient General Information Nutritional Screening Moderate Risk Diagnosis Psychosis NOS Pertinent Medical Hx/Surgical Hx 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 Subjective Information Patient was admitted from SNF. Talking to MD at time of visit. Current Diet Order/ Nutrition Support Mechanical soft, no added sodium Patient / S.O Not Indicated Pertinent Medications maalox, colace, MOM Pertinent Labs WNL Nutritional Hx/Data Height 5 ft 8 in Height (Calculated Centimeters) 172.7 Current Weight (lbs) 120 lb Weight (Calculated Kilograms) 54.4 Weight (Calculated Grams) 72153.1 [place] Body Weight 140 % [place] Body Weight 85 Body Mass Index (BMI) 18.2 Recent Weight Change No Weight Status Underweight GI Symptoms GI Symptoms None Last BM 07/25 x 1 Difficult in: None Food Allergies No Cultural/Ethnic/Orthodoxy Belief none indicated Usual diet at home unknown Skin Integrity/Comment: Heraclio 14, intact Current %PO Good (75-100%) Estimated Nutritional Goals BEE in Kcals: Using Current wt Calories/Kcals/Kg CBW 54.4 kg 30-35 kcal/kg ( underweight) Kcals Calculated 3894-5813 kcal/day Protein: Using Current wt Protein g/k-1.2 gm/kg Protein Calculated 55-65 gm/day Fluid: ml 1604-8260 ml/day (1 ml/kcal) Nutritional Problem 1. Problem Problem Underweight Etiology related to possible poor intake prior to admission, age aeb Signs/Symptoms: BMI 18.2 Intervention/Recommendation Comments 1. Continue mechanical soft, no added sodium diet as tolerated by patient. 2. With PO intake 75-100% of meals, no need for supplements at this time. Continue to monitor intake and weight. Expected Outcomes/Goals Expected Outcomes/Goals Oral intake >75% of meals, weight stable or trend toward IBW, nutrition related labs WNL. F/U LR 08/02
--- NOTE | 2018-08-05 17:46 | Discharge Summary ---
DATE OF DISCHARGE: 08/05/2018 FINAL DIAGNOSIS AND PRIMARY DIAGNOSIS: Psychosis, unspecified. SECONDARY DIAGNOSES: Dementia, moderate to severe, with psychotic features. REASON FOR HOSPITALIZATION: The patient was admitted to the hospital from [facility] because of confusion and poor intake and hallucinations and unable to care for herself with disorganized thoughts. HOSPITAL COURSE: The patient continued to be confused. The patient also was easily irritable and easily agitated. The patient was given Aricept and the dose adjusted to 10 mg at bedtime as well as Namenda in a dose of 5 mg twice a day. Also, the patient was given Zyprexa and the dose adjusted to 7.5 mg at bedtime. Gradually, her affect was brighter. The patient was less irritable and less agitated. Also, interact more with peers and with others. Also, her food intake was much improved. The patient was accepted back to [place] and the patient was discharged to [facility]. Physical examination of the patient showed no major medical problems in the hospital. The patient was eating better prior to her discharge. AFTER DISCHARGE PLANS: The patient discharged from the hospital and returned to [facility] with plans to follow her up there. EXPECTED OUTCOME AFTER DISCHARGE: Fair if the patient continues to take her psychotropic medications and follow up with discharge plans. [facility]# [id number]
== END 2018-08-05 15:25 | DRG 885 ==
LOC: ER 19:38 → GERO 22:36
PROVIDERS: ADMIT Psychiatry & Neurology Psychiatry; ATTEND Psychiatry & Neurology Psychiatry
DX: F29 Unspecified psychosis not due to a substance or known physiological condition (principal); F03.91 Unspecified dementia, unspecified severity, with behavioral disturbance; I10 Essential (primary) hypertension
CPT/HCPCS: 36415-UA; 73501; 80053-TC; 80061-TC; 83036-90; 84443-TC; 85025-TC; G0410; J7051; Z7610